=== PATIENT | female | born 1965 | race Hispanic/Latino ===

== ENCOUNTER 2016-09-21 15:42 | Emergency (ER) | payer MEDICAID ==
[2016-09-21 15:43] VITALS: BMI 18.3
[2016-09-21 15:57] VITALS: TEMP 98.4
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
[2016-09-21 17:55] VITALS: BP 122/77; PULSE 100; RESP 20
[2016-09-21 18:08] VITALS: O2SAT 98
== END 2016-09-21 18:04 | disposition home or self-care (01) ==
LOC: C.ER 15:42
DX: F41.9 Anxiety disorder, unspecified (principal)

== ENCOUNTER 2016-10-02 07:34 | Emergency (ER) | payer OTHER, MEDICAID ==
[2016-10-02 07:34] VITALS: BMI 18.3
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
[2016-10-02 09:06] LABS: BASO % 0.9 % (0.0-2.0); EOS # 0.1 K/uL (0.0-0.7); EOS % 2.4 % (0.0-4.0); LYMPH # 0.7 K/uL (1.0-4.3); LYMPH % 14.5 % (20.0-40.0); MEAN CORPUSCULAR HEMOGLOBIN 28.7 pg (27.0-31.0); MEAN CORPUSCULAR HGB CONC 32.3 g/dL (33.0-37.0); MONO # 0.6 K/uL (0.0-0.8); MONO % 12.9 % (0.0-10.0); RED CELL DISTRIBUTION WIDTH 16.9 % (11.5-14.5)
[2016-10-02 09:12] LABS: CHLORIDE 101 mmol/L (98-107); SODIUM 136 mmol/L (132-148)
[2016-10-02 09:13] LABS: POTASSIUM 3.9 mmol/L (3.6-5.2)
[2016-10-02 09:15] LABS: ALB/GLOB RATIO 1.3 (1.0-2.1); ALKALINE PHOSPHATASE 58 U/L (38-126); ALT/SGPT 25 U/L (9-52); AST/SGOT 41 U/L (14-36); BILIRUBIN,TOTAL 0.6 mg/dL (0.2-1.3); BLOOD UREA NITROGEN 12 mg/dL (7-17); CARBON DIOXIDE 25 mmol/L (22-30); GFR AFRICAN-AMERICAN > 60; GLUCOSE,RANDOM 89 mg/dL (65-105); TOTAL PROTEIN 6.9 g/dL (6.3-8.3)
[2016-10-02 09:16] LABS: ALCOHOL SERUM < 10 mg/dl (0-10); CALCIUM 8.8 mg/dl (8.6-10.4)
[2016-10-02 09:37] LABS: RBC URINE < 1 /hpf (0-3); URINE BILIRUBIN NEGATIVE (NEGATIVE); URINE BLOOD NEGATIVE (NEGATIVE); URINE COLOR Yellow (YELLOW); URINE GLUCOSE (UA) NORMAL (Normal); URINE KETONE NEGATIVE (NEGATIVE); URINE LEUKOCYTE ESTERASE NEG Leu/uL (Negative); URINE PROTEIN NEGATIVE (NEGATIVE); URINE UROBILINOGEN NORMAL mg/dL (0.2-1.0); WBC URINE 1 /hpf (0-5)
[2016-10-02 18:01] VITALS: BP 147/89; PULSE 99; RESP 16; TEMP 97.6
[2016-10-02 18:37] VITALS: O2SAT 99
== END 2016-10-02 18:24 | disposition home or self-care (01) ==
LOC: C.ER 07:34
DX: Z76.5 Malingerer [conscious simulation] (principal); F32.9 Major depressive disorder, single episode, unspecified; F31.9 Bipolar disorder, unspecified; T76.21XA Adult sexual abuse, suspected, initial encounter

== ENCOUNTER 2016-10-20 18:57 | Emergency (ER) | payer OTHER, MEDICAID ==
[2016-10-20 18:57] VITALS: BMI 18.3
[2016-10-20 19:09] VITALS: RESP 18
[2016-10-20 20:48] LABS: URINE BILIRUBIN NEGATIVE (NEGATIVE); URINE BLOOD NEGATIVE (NEGATIVE); URINE COLOR Colorless (YELLOW); URINE GLUCOSE (UA) NORMAL (Normal); URINE KETONE NEGATIVE (NEGATIVE); URINE LEUKOCYTE ESTERASE NEG Leu/uL (Negative); URINE PROTEIN NEGATIVE (NEGATIVE); URINE UROBILINOGEN NORMAL mg/dL (0.2-1.0); WBC URINE 2 /hpf (0-5)
[2016-10-20 20:49] LABS: BASO # 0.1 K/uL (0.0-0.2); BASO % 1.5 % (0.0-2.0); EOS # 0.1 K/uL (0.0-0.7); EOS % 1.9 % (0.0-4.0); LYMPH # 2.5 K/uL (1.0-4.3); LYMPH % 41.8 % (20.0-40.0); MEAN CELL VOLUME 87.9 fL (81.0-99.0); MEAN CORPUSCULAR HEMOGLOBIN 28.9 pg (27.0-31.0); MEAN CORPUSCULAR HGB CONC 32.9 g/dL (33.0-37.0); MONO # 0.7 K/uL (0.0-0.8); RED CELL DISTRIBUTION WIDTH 16.6 % (11.5-14.5)
[2016-10-20 20:53] LABS: CHLORIDE 95 mmol/L (98-107); SODIUM 131 mmol/L (132-148)
[2016-10-20 20:55] LABS: ALB/GLOB RATIO 1.3 (1.0-2.1); AST/SGOT 31 U/L (14-36); BILIRUBIN,TOTAL 0.5 mg/dL (0.2-1.3); CARBON DIOXIDE 24 mmol/L (22-30); GFR AFRICAN-AMERICAN > 60; TOTAL PROTEIN 7.2 g/dL (6.3-8.3)
[2016-10-20 20:56] LABS: ALCOHOL SERUM 159 mg/dl (0-10); ALKALINE PHOSPHATASE 56 U/L (38-126); ALT/SGPT 16 U/L (9-52); BLOOD UREA NITROGEN 7 mg/dL (7-17); CALCIUM 8.6 mg/dl (8.6-10.4); GLUCOSE,RANDOM 77 mg/dL (65-105)
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
[2016-10-20 23:01] VITALS: BP 133/78; PULSE 86; TEMP 98.3; O2SAT 97
== END 2016-10-20 23:00 | disposition home or self-care (01) ==
LOC: C.ER 18:57
DX: Z04.41 Encounter for examination and observation following alleged adult rape (principal); F31.9 Bipolar disorder, unspecified

== ENCOUNTER 2016-12-01 13:45 | Emergency (ER) | payer MEDICAID, OTHER ==
[2016-12-01 13:46] VITALS: BMI 18.3
[2016-12-01] MEDS ORDERED: Fluorescein 1 mg Ophthalmic Strip OS ONE (14:22)
[2016-12-01] MEDS ORDERED: Tetracaine 0.5% Ophth 2 ML BOTTLE OS ONE (14:22)
[2016-12-01] MEDS ORDERED: Tetracaine 0.5% Ophth (OR ONLY) ONE (14:24)
[2016-12-01] MEDS ORDERED: Fluorescein 1 mg Ophthalmic Strip ONE (14:24)
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
[2016-12-01 15:12] VITALS: RESP 18; TEMP 97.8
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
[2016-12-01 16:22] VITALS: BP 148/75; PULSE 75; O2SAT 98
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
== END 2016-12-01 16:23 | disposition home or self-care (01) ==
LOC: C.ER 13:45
DX: S05.02XA Injury of conjunctiva and corneal abrasion without foreign body, left eye, initial encounter (principal); Y04.2XXA Assault by strike against or bumped into by another person, initial encounter; Y93.89 Activity, other specified; Y92.89 Other specified places as the place of occurrence of the external cause

== ENCOUNTER 2017-01-07 21:05 | Emergency (ER) | payer SELFPAY ==
[2017-01-07 21:06] VITALS: BMI 18.3
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
[2017-01-07 22:23] LABS: RBC URINE < 1 /hpf (0-3); URINE BACTERIA RARE (<OCC); URINE BILIRUBIN NEGATIVE (NEGATIVE); URINE BLOOD NEGATIVE (NEGATIVE); URINE COLOR Straw (YELLOW); URINE GLUCOSE (UA) NORMAL (Normal); URINE KETONE NEGATIVE (NEGATIVE); URINE LEUKOCYTE ESTERASE NEG Leu/uL (Negative); URINE PROTEIN NEGATIVE (NEGATIVE); URINE UROBILINOGEN NORMAL mg/dL (0.2-1.0); WBC URINE 2 /hpf (0-5)
[2017-01-07 22:28] LABS: BASO # 0.1 K/uL (0.0-0.2); BASO % 0.9 % (0.0-2.0); EOS # 0.1 K/uL (0.0-0.7); EOS % 1.6 % (0.0-4.0); HEMATOCRIT 35.3 % (34.0-47.0); LYMPH % 45.1 % (20.0-40.0); MEAN CELL VOLUME 86.3 fL (81.0-99.0); MEAN CORPUSCULAR HEMOGLOBIN 28.5 pg (27.0-31.0); MEAN PLATELET VOLUME 8.3 fL (7.2-11.7); MONO # 0.7 K/uL (0.0-0.8); MONO % 9.7 % (0.0-10.0); NRBC % 0.1 % (0.0-2.0); WHITE BLOOD COUNT 6.7 K/uL (4.8-10.8)
[2017-01-07 22:38] LABS: CHLORIDE 97 mmol/L (98-107); SODIUM 138 mmol/L (132-148)
[2017-01-07 22:39] LABS: POTASSIUM 3.7 mmol/L (3.6-5.2)
[2017-01-07 22:41] LABS: ALB/GLOB RATIO 1.3 (1.0-2.1); ALKALINE PHOSPHATASE 73 U/L (38-126); AST/SGOT 32 U/L (14-36); BILIRUBIN,TOTAL 0.5 mg/dL (0.2-1.3); BLOOD UREA NITROGEN 8 mg/dL (7-17); CARBON DIOXIDE 22 mmol/L (22-30); GFR AFRICAN-AMERICAN > 60; TOTAL PROTEIN 6.7 g/dL (6.3-8.3)
[2017-01-07 22:42] LABS: ALT/SGPT 25 U/L (9-52); CALCIUM 8.1 mg/dl (8.6-10.4); GLUCOSE,RANDOM 97 mg/dL (65-105)
[2017-01-08 00:40] VITALS: BP 110/71; PULSE 75; RESP 18; TEMP 98.5
--- NOTE | 2017-01-08 09:18 | RAD ---
HISTORY: Chest pain COMPARISON: No prior. FINDINGS: LUNGS: No active pulmonary disease. PLEURA: No significant pleural effusion identified, no pneumothorax apparent. CARDIOVASCULAR: Normal. OSSEOUS STRUCTURES: No significant abnormalities. VISUALIZED UPPER ABDOMEN: Normal. OTHER FINDINGS: None. IMPRESSION: No active disease.
--- NOTE | 2017-01-08 13:43 | CARD ---
APPROVED REPORT EKG Measurement Heart [id number] <Conclusion> Normal sinus rhythm Normal ECG
[2017-01-13 00:28] VITALS: O2SAT 97
== END 2017-01-08 00:39 | disposition home or self-care (01) ==
LOC: C.ER 21:05
DX: R07.9 Chest pain, unspecified (principal)
CPT/HCPCS: 71010; 80053; 81001; 84484; 84703; 85025; 93005; 96374; 99284; J1885

== ENCOUNTER 2017-01-29 17:56 | Emergency (ER) | payer MEDICAID ==
[2017-01-29] MEDS ORDERED: Sodium Chloride 0.9% 1,000 ML IV ONE ×2 (20:13→20:14)
[2017-01-29] MEDS ORDERED: Iohexol 240 (50 ml) PO ONE (20:15)
--- NOTE | 2017-01-29 20:52 | C.PDOC ---
History Of Present Illness 51 year old female who presents to the ER with a complaint of diarrhea and severe abdominal pain for the past 5 days. Denies fever or dysuria. Chief Complaint (Nursing): GI Problem History Per: Patient History/Exam Limitations: no limitations Onset/Duration Of Symptoms: Days Current Symptoms Are (Timing): Still Present Severity: Severe Location Of Pain/Discomfort: LLQ Radiation Of Pain To:: None Quality Of Discomfort: Unable To Describe Associated Symptoms: Diarrhea. denies: Fever, Chills, Nausea, Vomiting, Back Pain Exacerbating Factors: None Alleviating Factors: None Recent travel outside of the [place]: No Abnormal Vaginal Bleeding: No Past Medical History Reviewed: Historical Data, Nursing Documentation, Vital Signs Vital Signs: Last Vital Signs Temp 98.5 F 01/29/17 18:43 Pulse 88 01/29/17 18:43 Resp 20 01/29/17 18:43 BP 123/88 01/29/17 18:43 Pulse Ox 98 01/29/17 20:55 - Medical History PMH: Anxiety, Bipolar Disorder, CAD, Cardia Arrhythmia, COPD, Depression, Fractures (right wrist due to fall), HTN, Migraine, Personality Disorder, Pneumonia, Seizures (ETOH related) Surgical History: Cholecystectomy - [facility] Procedures DETOXIFICATION SERVICES FOR SUBSTANCE ABUSE TREATMENT (06/17/16) GROUP SALT MINER FOR SUBSTANCE ABUSE TREATMENT, PSYCHOEDUCATION (04/22/16) GROUP PSYCHOTHERAPY (04/14/16) INDIV PSYCHOTHERAPY FOR SUBSTANCE ABUSE TREATMENT, SUPPORT (04/14/16) INDIV PSYCHOTHERAPY FOR SUBSTANCE ABUSE, PSYCHOEDUCATION (08/26/16) INDIVIDUAL PSYCHOTHERAPY, BEHAVIORAL (08/25/16) INDIVIDUAL PSYCHOTHERAPY, COGNITIVE-BEHAVIORAL (06/17/16) INDIVIDUAL PSYCHOTHERAPY, SUPPORTIVE (08/26/16) INTRODUCTION OF SERUM/TOX/VACCINE INTO MUSCLE, PERC APPROACH (08/19/16) MEDICATION MANAGEMENT (10/21/16) Family History: States: Unknown Family Hx - Social History Hx Tobacco Use: Yes Hx Alcohol Use: Yes Hx Substance Use: No - Immunization History Hx Tetanus Toxoid Vaccination: Yes Hx Influenza Vaccination: Yes Hx Pneumococcal Vaccination: Yes Review Of Systems Constitutional: Negative for: Fever, Chills Cardiovascular: Negative for: Chest Pain, Palpitations Gastrointestinal: Positive for: Abdominal Pain, Diarrhea. Negative for: Nausea , Vomiting Genitourinary: Negative for: Dysuria, Hematuria Physical Exam - Physical Exam Appears: Non-toxic, Other (Mild distress) Skin: Normal Color, Warm, Dry Head: Atraumatic, Normacephalic Oral Mucosa: Dry Chest: Symmetrical, No Tenderness Cardiovascular: Rhythm Regular, No Murmur Respiratory: Normal Breath Sounds, No Rales, No Rhonchi, No Wheezing Gastrointestinal/Abdominal: Bowel Sounds (Hyperactive), Tenderness (Midline, more LLQ), No Guarding, No Rebound Neurological/Psych: Oriented x3, Normal Speech, Normal Cognition ED Course And Treatment - Laboratory Results Result Diagrams: 01/29/17 21:00 01/29/17 21:00 O2 Sat by Pulse Oximetry: 98 (Room air) Pulse Ox Interpretation: Normal Progress Note: CT abd/pel, blood work, and urinalysis ordered. Bentyl, toradol, and IV fluids administered. Disposition Counseled Patient/Family Regarding: Diagnosis - Disposition Referrals: [facility] [Outside] Disposition: HOME/ ROUTINE Disposition Time: 00:11 Condition: STABLE Additional Instructions: hot sitz bath Prescriptions: Atropine/Hyoscyamine [] 1 tab PO Q6 #12 tab Dibucaine 1% [Nupercainal 1%] 1 oz EXT Q8 #1 tube Instructions: Gastroenteritis (ED), Dehydration (ED), Rectal Pain (ED) Forms: [facility] (Albanian) - POA Present On Arrival: None - Clinical Impression Clinical Impression: Gastroenteritis, Rectal or anal pain - Scribe Statement The provider has reviewed the documentation as recorded by the Scribnicolas Coffey All medical record entries made by the Scribe were at my direction and personally dictated by me. I have reviewed the chart and agree that the record accurately reflects my personal performance of the history, physical exam, medical decision making, and the department course for this patient. I have also personally directed, reviewed, and agree with the discharge instructions and disposition.
[2017-01-29 21:02] LABS: BASO # 0.1 K/uL (0.0-0.2); BASO % 1.8 % (0.0-2.0); EOS # 0.1 K/uL (0.0-0.7); EOS % 1.6 % (0.0-4.0); HEMATOCRIT 32.5 % (34.0-47.0); LYMPH # 3.4 K/uL (1.0-4.3); LYMPH % 51.9 % (20.0-40.0); MEAN CELL VOLUME 86.6 fL (81.0-99.0); MEAN CORPUSCULAR HGB CONC 32.3 g/dL (33.0-37.0); MEAN PLATELET VOLUME 8.5 fL (7.2-11.7); MONO # 0.4 K/uL (0.0-0.8); MONO % 6.7 % (0.0-10.0); NRBC % 0.1 % (0.0-2.0); RED CELL DISTRIBUTION WIDTH 17.6 % (11.5-14.5); WHITE BLOOD COUNT 6.5 K/uL (4.8-10.8)
[2017-01-29 21:05] LABS: TRANSITIONAL EPITHIAL < 1 /hpf (0-3); URINE BACTERIA RARE (<OCC); URINE BILIRUBIN NEGATIVE (NEGATIVE); URINE BLOOD NEGATIVE (NEGATIVE); URINE COLOR Straw (YELLOW); URINE GLUCOSE (UA) NORMAL (Normal); URINE KETONE NEGATIVE (NEGATIVE); URINE LEUKOCYTE ESTERASE NEG Leu/uL (Negative); URINE PROTEIN NEGATIVE (NEGATIVE); URINE UROBILINOGEN NORMAL mg/dL (0.2-1.0); WBC URINE < 1 /hpf (0-5)
[2017-01-29] MEDS ORDERED: Iohexol 240 (50 ml) ONE (21:10)
[2017-01-29 21:11] LABS: CHLORIDE 95 mmol/L (98-107); POTASSIUM 3.8 mmol/L (3.6-5.2); SODIUM 129 mmol/L (132-148)
[2017-01-29 21:13] LABS: GFR AFRICAN-AMERICAN > 60
[2017-01-29 21:14] LABS: ALB/GLOB RATIO 1.3 (1.0-2.1); ALKALINE PHOSPHATASE 63 U/L (38-126); ALT/SGPT 29 U/L (9-52); AST/SGOT 31 U/L (14-36); BILIRUBIN,TOTAL 0.4 mg/dL (0.2-1.3); BLOOD UREA NITROGEN 10 mg/dL (7-17); CALCIUM 8.4 mg/dl (8.6-10.4); CARBON DIOXIDE 22 mmol/L (22-30); GLUCOSE,RANDOM 85 mg/dL (65-105); TOTAL PROTEIN 6.3 g/dL (6.3-8.3)
[2017-01-29] MEDS ORDERED: Iodixanol 320 MG/ML 100 ML BOTTLE IV ONE (22:05)
--- NOTE | 2017-01-29 23:35 | CT ---
EXAM: CT Abdomen and Pelvis Without Intravenous Contrast. Oral contrast was utilized. CLINICAL HISTORY: 51 years old, female; Signs and symptoms; Vomiting and other: Diarrhea; Additional info: Abd pain/ diarrhea TECHNIQUE: Axial computed tomography images of the abdomen and pelvis without intravenous contrast. All CT scans at this facility use one or more dose reduction techniques, viz.: automated exposure control; ma/kV adjustment per patient size (including targeted exams where dose is matched to indication; i.e. head); or iterative reconstruction technique. Coronal and sagittal reformatted images were created and reviewed. COMPARISON: No relevant prior studies available. FINDINGS: Lower thorax: The bilateral lung bases are clear. ABDOMEN: Liver: The liver is enlarged and nodular in contour. Gallbladder and bile ducts: The gallbladder is decompressed, with multiple small calcified stones. No intra-extrahepatic biliary ductal dilation. Pancreas: Limited evaluation secondary to the lack of intravenous contrast. Spleen: No acute findings. Adrenals: No acute findings. Kidneys and ureters: No obstructing stones. No hydronephrosis. PELVIS: Bladder: The bladder is moderately distended. Reproductive: No acute findings. Appendix: The appendix is not definitively visualized, however no pericecal inflammatory changes identified to suggest the presence of acute appendicitis. ABDOMEN and PELVIS: Stomach and bowel: Small bowel wall thickening but no surrounding inflammation or fluid to confirm an acute enteritis. Peritoneum: As above. Lymph nodes: Limited evaluation without intravenous contrast. Vasculature: No aortic aneurysm. Calcified atherosclerotic disease. Bones: No acute fracture. IMPRESSION: Nodular enlarged liver, suggesting cirrhosis. Cholelithiasis, without CT evidence of cholecystitis. Mural thickening within multiple loops of small bowel, without surrounding inflammation or fluid to confirm an acute enteritis.
[2017-01-30 00:21] VITALS: BP 118/79; PULSE 74; RESP 16; TEMP 98; O2SAT 96
== END 2017-01-30 00:28 | disposition home or self-care (01) ==
LOC: C.ER 17:56
DX: K52.9 Noninfective gastroenteritis and colitis, unspecified (principal); K62.89 Other specified diseases of anus and rectum

== ENCOUNTER 2017-02-02 20:14 | Emergency (ER) | payer MEDICAID ==
[2017-02-02 20:25] VITALS: TEMP 98.1; O2SAT 99
[2017-02-02] MEDS ORDERED: Alum-Mag Hydrox-Simethicone Susp (30 mL) PO STA (21:33)
--- NOTE | 2017-02-02 21:33 | C.PDOC ---
History Of Present Illness 51 year old female who presents to the ER for acute ETOH intoxication. Patient is well known to the ER for many presentations for ETOH intoxication and bizarre behavior. Patient is complaining of loose stools, multiple vague complaints, and admits to ETOH use today; denies SI or HI. Time Seen by Provider: 02/02/17 21:28 Chief Complaint (Nursing): Abdominal Pain History Per: Patient History/Exam Limitations: no limitations Onset/Duration Of Symptoms: Hrs Current Symptoms Are (Timing): Still Present Radiation Of Pain To:: None Associated Symptoms: denies: Fever, Chills, Nausea, Vomiting Exacerbating Factors: None Alleviating Factors: None Recent travel outside of the [place]: No Abnormal Vaginal Bleeding: No Past Medical History Reviewed: Historical Data, Nursing Documentation, Vital Signs Vital Signs: Last Vital Signs Temp 98.1 F 02/02/17 20:22 Pulse 80 02/02/17 21:40 Resp 14 02/02/17 21:40 BP 130/80 02/02/17 21:40 Pulse Ox 99 02/02/17 21:40 - Medical History PMH: Anxiety, Bipolar Disorder, CAD, Cardia Arrhythmia, COPD, Depression, Fractures (right wrist due to fall), HTN, Migraine, Personality Disorder, Pneumonia, Seizures (ETOH related) Surgical History: Cholecystectomy - [facility] Procedures DETOXIFICATION SERVICES FOR SUBSTANCE ABUSE TREATMENT (06/17/16) GROUP PHLEBOTOMY COORDINATOR FOR SUBSTANCE ABUSE TREATMENT, PSYCHOEDUCATION (04/22/16) GROUP PSYCHOTHERAPY (04/14/16) INDIV PSYCHOTHERAPY FOR SUBSTANCE ABUSE TREATMENT, SUPPORT (04/14/16) INDIV PSYCHOTHERAPY FOR SUBSTANCE ABUSE, PSYCHOEDUCATION (08/26/16) INDIVIDUAL PSYCHOTHERAPY, BEHAVIORAL (08/25/16) INDIVIDUAL PSYCHOTHERAPY, COGNITIVE-BEHAVIORAL (06/17/16) INDIVIDUAL PSYCHOTHERAPY, SUPPORTIVE (08/26/16) INTRODUCTION OF SERUM/TOX/VACCINE INTO MUSCLE, PERC APPROACH (08/19/16) MEDICATION MANAGEMENT (10/21/16) Family History: States: Unknown Family Hx - Social History Hx Tobacco Use: Yes Hx Alcohol Use: Yes Hx Substance Use: No - Immunization History Hx Tetanus Toxoid Vaccination: Yes Hx Influenza Vaccination: Yes Hx Pneumococcal Vaccination: Yes Review Of Systems Constitutional: Negative for: Fever, Chills Gastrointestinal: Negative for: Nausea, Vomiting, Diarrhea Physical Exam - Physical Exam Appears: Non-toxic, No Acute Distress, Other (ETOH on breath, pressured speech) Skin: Normal Color, Warm, Dry Head: Atraumatic, Normacephalic Oral Mucosa: Moist Chest: Symmetrical, No Tenderness Cardiovascular: Rhythm Regular, No Murmur Respiratory: Normal Breath Sounds, No Rales, No Rhonchi, No Wheezing Gastrointestinal/Abdominal: Soft, No Tenderness Neurological/Psych: Oriented x3, Normal Speech, Normal Cognition Gait: Steady ED Course And Treatment O2 Sat by Pulse Oximetry: 99 (Room air) Pulse Ox Interpretation: Normal Progress Note: Maalox administered. Medical Decision Making Medical Decision Making: alcohol abuse, ? diarrhea many prior eval for alcohol abuse admits to alcohol abuse today Denies suicidal/hI Crisis evaluators agree ok for opt eval, s/p many prior evals. Disposition Doctor Will See Patient In The: Office Counseled Patient/Family Regarding: Studies Performed, Diagnosis - Disposition Referrals: Alcoholics Anonymous [Outside] [facility] [Outside] [facility] [Outside] [facility] [Outside] Disposition: HOME/ ROUTINE Disposition Time: 21:32 Condition: GOOD Additional Instructions: diarrhea: take maalox 30 cc (one tablestpoon) every 4 hours as needed bland diet for 2 days. bananas, white rice, applesauce, toast/bread Drink plenty of fluids Alcohol Abuse: Seek outpatient follow-up and Detox availability through our outpatient services No detox beds available today. Instructions: Abuse of Alcohol (ED), Acute Diarrhea (ED) Forms: [facility] (Pakistani) - Clinical Impression Clinical Impression: Chronic alcohol abuse - Scribe Statement The provider has reviewed the documentation as recorded by the Scribnicolas Coffey All medical record entries made by the Scribe were at my direction and personally dictated by me. I have reviewed the chart and agree that the record accurately reflects my personal performance of the history, physical exam, medical decision making, and the department course for this patient. I have also personally directed, reviewed, and agree with the discharge instructions and disposition.
[2017-02-02 21:41] VITALS: BP 130/80; PULSE 80; RESP 14
== END 2017-02-02 21:41 | disposition home or self-care (01) ==
LOC: C.ER 20:14
DX: F10.120 Alcohol abuse with intoxication, uncomplicated (principal); Y90.9 Presence of alcohol in blood, level not specified

== ENCOUNTER 2017-02-22 20:06 | Observation (INO) | payer MEDICAID ==
[2017-02-22 20:06] VITALS: BMI 20.9
[2017-02-22] MEDS ORDERED: Bacitracin 500 Units/gm Oint Foilpak UD TOP ONE (20:21)
[2017-02-22] MEDS ORDERED: Bacitracin 500 Units/gm Oint Foilpak UD ONE (20:43)
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
[2017-02-23 05:57] VITALS: BP 127/82; PULSE 78; RESP 22; TEMP 98.2; O2SAT 98
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
--- NOTE | 2017-02-23 09:43 | RAD ---
PROCEDURE: Cervical Spine Radiographs. HISTORY: Pain. COMPARISON: None. FINDINGS: BONES: There is normal alignment except for a minimal grade 1 spondylolisthesis C5-6 is C5 is posterior C6 by 2-3 mm. Multilevel spondylosis is identified mainly at C4-5 and C5-6 where prominent anterior osteophytes are identified but none posteriorly. No fracture identified. DISC SPACES: As above. SOFT TISSUES: Normal. No prevertebral soft tissue swelling. OTHER FINDINGS: None. IMPRESSION: No acute fracture appreciable. Limited spondylolisthesis C5-6. Mild multilevel cervical spondylosis. Extent of persist or worsen consider follow-up CT or MRI.
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
== END 2017-02-23 06:14 | disposition home or self-care (01) ==
LOC: C.ER 20:06 → C.9OBSV 21:54
PROVIDERS: ADMIT Emergency Medicine; ATTEND Emergency Medicine
DX: M54.2 Cervicalgia (principal); M25.561 Pain in right knee; Y09 Assault by unspecified means; J44.9 Chronic obstructive pulmonary disease, unspecified; I10 Essential (primary) hypertension; Z87.891 Personal history of nicotine dependence; I25.10 Atherosclerotic heart disease of native coronary artery without angina pectoris
CPT/HCPCS: 71020; 72040; 73562; 99284; G0378

== ENCOUNTER 2017-02-24 13:31 | Emergency (ER) | payer MEDICAID ==
[2017-02-24 13:31] VITALS: BMI 20.9
[2017-02-24 13:45] VITALS: BP 163/101; PULSE 83; RESP 20; TEMP 98.5; O2SAT 95
--- NOTE | 2017-02-24 14:33 | C.PDOC ---
History Of Present Illness 51 year old female, with a history of personality Bipolar Disorder and chronic alcoholism, was brought to the ED by EMS seeking retirement placement. Patient has presented to the ED three times this month, last visit was 02/22/2017. She admits to drinking alcohol this morning and denies suicidal or homicidal ideations. Time Seen by Provider: 02/24/17 14:11 Chief Complaint (Nursing): Psychiatric Evaluation History Per: Patient, EMS History/Exam Limitations: no limitations Onset/Duration Of Symptoms: Hrs Suicide/Self Injury Attempted (Context): None Modifying Factor(s): Alcohol Severity: None Pain Scale Rating Of: 0 Associated Symptoms: denies: Suicidal Thoughts, Suicidal Plan Involuntary Hold By: None Recent travel outside of the [place]: No Past Medical History Reviewed: Historical Data, Nursing Documentation, Vital Signs Vital Signs: Last Vital Signs Temp 98.5 F 02/24/17 13:38 Pulse 83 02/24/17 13:38 Resp 20 02/24/17 13:38 BP 163/101 H 02/24/17 13:38 Pulse Ox 95 02/24/17 21:32 - Medical History PMH: Anxiety, Bipolar Disorder, CAD, Cardia Arrhythmia, COPD, Depression, Fractures (right wrist due to fall), HTN, Migraine, Personality Disorder, Pneumonia, Seizures (ETOH related) Surgical History: Cholecystectomy - [facility] Procedures DETOXIFICATION SERVICES FOR SUBSTANCE ABUSE TREATMENT (06/17/16) GROUP PARTS PULLER FOR SUBSTANCE ABUSE TREATMENT, PSYCHOEDUCATION (04/22/16) GROUP PSYCHOTHERAPY (04/14/16) INDIV PSYCHOTHERAPY FOR SUBSTANCE ABUSE TREATMENT, SUPPORT (04/14/16) INDIV PSYCHOTHERAPY FOR SUBSTANCE ABUSE, PSYCHOEDUCATION (08/26/16) INDIVIDUAL PSYCHOTHERAPY, BEHAVIORAL (08/25/16) INDIVIDUAL PSYCHOTHERAPY, COGNITIVE-BEHAVIORAL (06/17/16) INDIVIDUAL PSYCHOTHERAPY, SUPPORTIVE (08/26/16) INTRODUCTION OF SERUM/TOX/VACCINE INTO MUSCLE, PERC APPROACH (08/19/16) MEDICATION MANAGEMENT (10/21/16) Family History: States: Unknown Family Hx - Social History Hx Tobacco Use: Yes Hx Alcohol Use: Yes Hx Substance Use: No - Immunization History Hx Tetanus Toxoid Vaccination: No Hx Influenza Vaccination: Yes Hx Pneumococcal Vaccination: Yes Review Of Systems Constitutional: Negative for: Fever, Chills Cardiovascular: Negative for: Chest Pain, Palpitations Respiratory: Negative for: Cough, Shortness of Breath Gastrointestinal: Negative for: Nausea, Vomiting, Abdominal Pain, Diarrhea Physical Exam - Physical Exam Appears: Non-toxic, No Acute Distress Skin: Warm, Dry Head: Atraumatic, Normacephalic Eye(s): bilateral: Normal Inspection Oral Mucosa: Moist Neck: Supple Chest: Symmetrical, No Deformity Cardiovascular: Rhythm Regular, No Murmur Respiratory: Normal Breath Sounds, No Rales, No Rhonchi, No Wheezing Gastrointestinal/Abdominal: Soft, No Tenderness, No Distention, No Guarding, No Rebound Extremity: Normal ROM, No Tenderness Neurological/Psych: Oriented x3, Normal Speech, Normal Cognition, Normal Motor, Normal Sensation ED Course And Treatment ECG: Interpreted By Me, Viewed By Me ECG Rhythm: Sinus Rhythm Rate From EC O2 Sat by Pulse Oximetry: 95 (room air ) Progress Note: EKG was ordered. Medical Decision Making Medical Decision Making: seen by Crisis Evaluators, no SI/HI no h/o self harm extensive psych and etoh abuse hx, and malingering 4th ED visit this week with normal w/u. consider malingering. asking for retirement placement, educated and arranged for this pt for tonight no w/u indicated. Disposition Doctor Will See Patient In The: Office Counseled Patient/Family Regarding: Studies Performed, Diagnosis - Disposition [facility]errals[facility] [Outside] Disposition: HOME/ ROUTINE Disposition Time: 14:32 Condition: GOOD Additional Instructions: seek [facility] placement as arranged for tonight and ongoing Seek outpatient psych services as needed. STOP alcohol abuse Forms: Gen Discharge Inst Macedonian, [facility] (Telugu) - Clinical Impression Clinical Impression: Homeless - Scribe Statement The provider has reviewed the documentation as recorded by the Scribe Georgina Salvador All medical record entries made by the Scribe were at my direction and personally dictated by me. I have reviewed the chart and agree that the record accurately reflects my personal performance of the history, physical exam, medical decision making, and the department course for this patient. I have also personally directed, reviewed, and agree with the discharge instructions and disposition.
--- NOTE | 2017-02-27 22:41 | CARD ---
APPROVED REPORT EKG Measurement Heart [id number] <Conclusion> Normal sinus rhythm Normal ECG
== END 2017-02-24 15:02 | disposition home or self-care (01) ==
LOC: C.ER 13:31
DX: Z59.0 Homelessness (principal); F31.9 Bipolar disorder, unspecified

== ENCOUNTER 2017-03-09 11:49 | Emergency (ER) | payer MEDICAID ==
[2017-03-09 11:49] VITALS: BMI 20.9
[2017-03-09 12:05] VITALS: BP 124/73; PULSE 80; RESP 16; TEMP 97.3; O2SAT 98
--- NOTE | 2017-03-09 12:41 | C.PDOC ---
History Of Present Illness 51 yo female, w/PMH of Right heel spur, intermittent Rt foot pain, come in for evaluation of Right foot pain over heel area with swelling gradually worsen for past few days. Pt reports, pain is localized and sever with ambulation. Otherwise, pt denies known trauma or injury, fever, chills, skin changes to Right foot, denies weakness, sensory or vascular deficits to Right foot. Ambulate to ED for evaluation, appears drowsy and intoxicated. Time Seen by Provider: 03/09/17 12:06 Chief Complaint (Nursing): Lower Extremity Problem/Injury Past Medical History Vital Signs: Last Vital Signs Temp 97.3 F L 03/09/17 11:56 Pulse 80 03/09/17 11:56 Resp 16 03/09/17 11:56 BP 124/73 03/09/17 11:56 Pulse Ox 98 03/09/17 11:56 - Medical History PMH: Anxiety, Bipolar Disorder, CAD, Cardia Arrhythmia, COPD, Depression, Fractures (right wrist due to fall), HTN, Migraine, Personality Disorder, Pneumonia, Seizures (ETOH related) Denies: Diabetes, Hepatitis, HIV, Chronic Kidney Disease, Schizophrenia, Sexually Transmitted Disease Surgical History: Cholecystectomy - [facility] Procedures DETOXIFICATION SERVICES FOR SUBSTANCE ABUSE TREATMENT (06/17/16) GROUP RECONCILIATION MACHINE OPERATOR FOR SUBSTANCE ABUSE TREATMENT, PSYCHOEDUCATION (04/22/16) GROUP PSYCHOTHERAPY (04/14/16) INDIV PSYCHOTHERAPY FOR SUBSTANCE ABUSE TREATMENT, SUPPORT (04/14/16) INDIV PSYCHOTHERAPY FOR SUBSTANCE ABUSE, PSYCHOEDUCATION (08/26/16) INDIVIDUAL PSYCHOTHERAPY, BEHAVIORAL (08/25/16) INDIVIDUAL PSYCHOTHERAPY, COGNITIVE-BEHAVIORAL (06/17/16) INDIVIDUAL PSYCHOTHERAPY, SUPPORTIVE (08/26/16) INTRODUCTION OF SERUM/TOX/VACCINE INTO MUSCLE, PERC APPROACH (08/19/16) MEDICATION MANAGEMENT (10/21/16) Family History: States: Unknown Family Hx - Social History Hx Tobacco Use: Yes Hx Alcohol Use: Yes Hx Substance Use: No - Immunization History Hx Tetanus Toxoid Vaccination: No Hx Influenza Vaccination: Yes Hx Pneumococcal Vaccination: Yes Physical Exam - Physical Exam Appears: Well, Non-toxic, No Acute Distress Skin: Normal Color, Warm, No Rash, No Ecchymosis Extremity: Normal ROM (Right foot), Tenderness (Right foot tenderness over plantar arch extend to calcaneus with diffuse edema under calcaneus bone, No erythema, no proximal streaking, no palpable deformity.), No Calf Tenderness, Capillary Refill (less than 2sec to Right foot), No Deformity Neurological/Psych: Oriented x3, Normal Speech, Normal Motor, Normal Sensation, Normal Reflexes ED Course And Treatment O2 Sat by Pulse Oximetry: 98 - Other Rad rIGHT FOOT X-Ray: Interpreted by Me, Viewed By Me Interpretation: no acute fx of dislocation. (+)tiny heel spur Progress Note: On re-eavl, pt is afebrile, hemodynamicaly stable. Non-toxic. Right foot: exam c/w plantar edema, tenderness r/o plantar fasciitis vx heel spur. No defomrity, no cellulitis. FAROM, no neurovascular deficits. xray review and c/w tiny heel spur. Case discussed with Podiary [id number] and NSAIDs, cast shoe with outpt f/u recommend. Pt advised. ref. to f/u with Web Systems Developer in 2-3 days for re-eavl. return if any new changes. Disposition Counseled Patient/Family Regarding: Studies Performed, Diagnosis, Need For Followup, Rx Given - Disposition Referrals: [facility] [Outside] [facility] [Outside] Disposition: HOME/ ROUTINE Disposition Time: 12:43 Condition: STABLE Additional Instructions: TAKE MEDICATION PRESCRIBED FOLLOW UP WITH PODIATRY CLINIC ON SUNDAY FROM 8-NOON AT MEDICAL CLINIC FACILITY FOR RE-EVALUATION. RETURN TO ED IF ANY NEW CHANGES. Prescriptions: Ibuprofen [Motrin Tab] 600 mg PO Q6 #14 tab Instructions: Plantar Fasciitis (ED) - Clinical Impression Clinical Impression: Plantar fasciitis
--- NOTE | 2017-03-09 14:36 | RAD ---
PROCEDURE: Right foot 03/09/2017 HISTORY: pain COMPARISON: None. FINDINGS: BONES: No evidence of acute displaced fracture nor dislocation. Small the plantar calcaneal enthesophyte. . Note that JOINTS: Minimal degenerative changes 1st MTP joint. Slight hammertoe deformities on preclude adequate evaluation of the DIP joints SOFT TISSUES: Normal. OTHER FINDINGS: None. IMPRESSION: No acute fractures. Small plantar surface calcaneal enthesophyte. Minimal DJD 1st MTP joint. Mild hammertoe deformities preclude evaluation of the DIP joints.
== END 2017-03-09 13:03 | disposition home or self-care (01) ==
LOC: C.ER 11:49
DX: M72.2 Plantar fascial fibromatosis (principal)

== ENCOUNTER 2017-05-08 12:00 | Inpatient (IN) | payer MEDICAID ==
[2017-05-08 12:00] VITALS: BMI 20.9
[2017-05-08] MEDS ORDERED: Sodium Chloride 0.9% 1,000 ML IV ONE (13:04)
[2017-05-08] MEDS ORDERED: Sodium Chloride 0.9% 1,000 ML ONE (13:23)
--- NOTE | 2017-05-08 13:23 | RAD ---
HISTORY: abd pain COMPARISON: Chest radiograph dated 02/22/2017 TECHNIQUE: Chest PA and lateral FINDINGS: LUNGS: No active pulmonary disease. PLEURA: No significant pleural effusion identified. No pneumothorax apparent. CARDIOVASCULAR: Normal. OSSEOUS STRUCTURES: No significant abnormalities. VISUALIZED UPPER ABDOMEN: Normal. OTHER FINDINGS: None. IMPRESSION: No active disease.
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
[2017-05-08 13:48] LABS: BASO # 0.1 K/uL (0.0-0.2); BASO % 1.4 % (0.0-2.0); EOS # 0.2 K/uL (0.0-0.7); HEMATOCRIT 28.9 % (34.0-47.0); LYMPH # 1.6 K/uL (1.0-4.3); LYMPH % 26.8 % (20.0-40.0); MEAN CELL VOLUME 87.7 fL (81.0-99.0); MEAN CORPUSCULAR HEMOGLOBIN 28.5 pg (27.0-31.0); MEAN CORPUSCULAR HGB CONC 32.5 g/dL (33.0-37.0); MEAN PLATELET VOLUME 8.3 fL (7.2-11.7); MONO # 0.7 K/uL (0.0-0.8); MONO % 12.2 % (0.0-10.0); RED CELL DISTRIBUTION WIDTH 17.8 % (11.5-14.5)
[2017-05-08 14:14] LABS: ALKALINE PHOSPHATASE 73 U/L (38-126); ALT/SGPT 36 U/L (9-52); AST/SGOT 40 U/L (14-36); BILIRUBIN,TOTAL 0.2 mg/dL (0.2-1.3); BLOOD UREA NITROGEN 15 mg/dL (7-17); CARBON DIOXIDE 21 mmol/L (22-30); CHLORIDE 100 mmol/L (98-107); GFR AFRICAN-AMERICAN > 60; GLUCOSE,RANDOM 72 mg/dL (65-105); POTASSIUM 3.8 mmol/L (3.6-5.2); SODIUM 131 mmol/L (132-148); TOTAL PROTEIN 7.1 g/dL (6.3-8.3)
[2017-05-08 19:12] VITALS: O2SAT 99
--- NOTE | 2017-05-08 21:20 | PCM.BM ---
<Leonardo Francisco - Last Filed: 05/08/17 21:18> Treatment Plan Problems - Problems identified on initial assessmt Depression Date Initiated: 05/08/17 Time Initiated: 19:30 Assessment reference: NA Status: Active Treatment assets and liabiliti Patient Assests: adapts well, cooperative, resourceful, self-reliant, ADL independent, negotiates basic needs, cognitively intact Patient Liabilities: substance abuse (Alcohol), medical problems (HTN, High cholesterol) - Milieu Protocol Maintain good personal hygiene: daily Encourage regular showers, daily Remind patient to perform daily oral care Conduct patient checks and document Observation sheet: Q15 minutes Maintain personal safety: every shift Educate patient to report safety concerns to staff, every shift Monitor environment for contraband/sharps Medication safety: Monitor for expected outcome, potential side effects: every shift, Assess barriers to learning: every shift, Assess readiness for medication education: every shift <Shanita Chu - Last Filed: 05/09/17 11:33> Family Contact Family involvement: Famliy/SO not involved - Goals for Treatment Patient goals for treatment: "I need an outpatient program." Discharge/Continuing Care - Education Needs Education Needs: Patient Medication, Patient Coping Skills, Patient Placement options, Patient Community resources - Discharge Discharge Criteria: Tolerates medication w/o severe side effects, Reduction of target symptoms Discharge to:: Home - Treatment Team Participation Discussed with Family/SO: No Was Patient/Family/SO present at Treatment Team Meeting: Yes <Lo Chiang - Last Filed: 05/10/17 22:51> - Diagnosis (1) Alcohol use disorder Status: Acute Interventions: * Assess 7x/week regarding severity of withdrawal * Educate regarding risks, benefits, side effects and alternatives of medications * Use Motivational Interviewing for abstinence * Use CBT for relapse prevention * Medication management for withdrawal symptoms * Encourage medication assisted treatment * (2) Bipolar 1 disorder Status: Acute Interventions: 05/10/17 22:50 * Assess/adjust medications daily and /or as needed * See patient on an individual basis 7x/week to assess level of manic behaviors and stability * Discuss risks, benefits, side effects and alternatives of medications *
[2017-05-08 22:20] LABS: RBC URINE 1 /hpf (0-3); TRANSITIONAL EPITHIAL < 1 /hpf (0-3); URINE BACTERIA RARE (<OCC); URINE BILIRUBIN NEGATIVE (NEGATIVE); URINE BLOOD NEGATIVE (NEGATIVE); URINE COLOR Yellow (YELLOW); URINE GLUCOSE (UA) NORMAL (Normal); URINE KETONE TRACE mg/dL (NEGATIVE); URINE PROTEIN NEGATIVE (NEGATIVE); URINE UROBILINOGEN NORMAL mg/dL (0.2-1.0); WBC URINE 9 /hpf (0-5)
[2017-05-08 22:21] LABS: URINE LEUKOCYTE ESTERASE 1+ Leu/uL (Negative)
[2017-05-09 06:59] VITALS: RESP 20
[2017-05-09] MEDS ORDERED: Divalproex 500 mg ER Tab PO SCH (10:00)
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
[2017-05-09] MEDS: Divalproex 500 mg ER Tab PO SCH (18:10)
[2017-05-09] MEDS ORDERED: Vitamins A & D Oint UD Foilpak TOP PRN (20:39)
[2017-05-10] MEDS: Divalproex 500 mg ER Tab PO SCH ×2 (10:23→17:40)
--- NOTE | 2017-05-10 22:50 | PCM.PYCHPN ---
Psychiatric Progress Note - Psychiatric Progress Note Patient seen today, length of contact: 16 min Patient Chief Complaint: "I feel much better" Problems Identified/Issues Discussed: The pt is seen, chart reviewed, case discussed with staff. Support given, CBT and VT used briefly No new symptoms reported, improving slowly and needs more time No SEs from medications, risks discussed. After care discussed Medication Change: Yes Medical Record Reviewed: Yes Mental Status Examination - Cognitive Function Orientation: Person, Place, Situation, Time Memory: Intact Attention: WNL Concentration: WNL Association: WNL Fund of Knowledge: WNL - Mood Mood: Anxious - Affect Affect: Constricted - Speech Speech: Appropriate - Formal Thought Process Formal Thought Process: No Impairment - Suicidal Ideation Suicidal Ideation: No - Homicidal Ideation Homicidal Ideation: No Goal/Treatment Plan - Goal/Treatment Plan Need for Continued Stay: Discharge may exacerbated symptoms, Severe functional impairment Progress Toward Problem(s) and Goals/Treatment Plan: Resume depakote and gabapentin Continue with MASSH Attend groups and activities Individual therapy Psychoeducation and support Encourage compliance with meds and after care Refer to outpatient program Teach healthy lifestyle methods, i.e. diet, exercise, meditation Smoking cessation
[2017-05-10] MEDS ORDERED: guaiFENesin 100 mg/5 ml Syrup UD PO PRN (23:21)
[2017-05-11 06:50] VITALS: BP 129/78; PULSE 66; TEMP 97.7
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
[2017-05-11] MEDS: Divalproex 500 mg ER Tab PO SCH (09:36)
--- NOTE | 2017-05-11 19:28 | CARD ---
APPROVED REPORT EKG Measurement Heart [id number] NM [id number] <Conclusion> Normal sinus rhythm Normal ECG
== END 2017-05-11 10:28 | disposition home or self-care (01) | DRG 428 ==
LOC: C.ER 12:00 → C.9E 18:36 → C.5E 18:54
PROC: GZHZZZZ Group Psychotherapy (ICD-10-PCS; principal; 2017-05-08)
PROC: GZ56ZZZ Individual Psychotherapy, Supportive (ICD-10-PCS; 2017-05-08)
DX: F60.3 Borderline personality disorder (principal); R45.851 Suicidal ideations; F14.11 Cocaine abuse, in remission; J44.9 Chronic obstructive pulmonary disease, unspecified; F10.20 Alcohol dependence, uncomplicated; Z72.89 Other problems related to lifestyle; I10 Essential (primary) hypertension; I25.10 Atherosclerotic heart disease of native coronary artery without angina pectoris; F17.210 Nicotine dependence, cigarettes, uncomplicated

== ENCOUNTER 2017-05-17 14:56 | Emergency (ER) | payer MEDICAID ==
[2017-05-17 14:57] VITALS: BMI 20.9
[2017-05-17 15:00] VITALS: RESP 20
[2017-05-17] MEDS ORDERED: Albuterol-Ipratrop 3 mg / 0.5 (3 ml) UD INH STA (15:31)
--- NOTE | 2017-05-17 15:38 | C.PDOC ---
History Of Present Illness Patient is a 51 y/o female, smoker, presents c/o productive cough with green sputum for the past week. Patient denies fever, ear pain, throat pain, CP, SOB. Time Seen by Provider: 05/17/17 15:18 Chief Complaint (Nursing): Cough, Cold, Congestion History Per: Patient History/Exam Limitations: no limitations Onset/Duration Of Symptoms: Days Current Symptoms Are (Timing): Still Present Sick Contacts (Context): None Associated Symptoms: Cough, Sputum (green). denies: Fever, Chills, Nasal Congestion, Vomiting, Diarrhea Ear Symptoms: Bilateral: None Severity: None Recent travel outside of the [place]: No Additional History Per: Patient Past Medical History Reviewed: Historical Data, Nursing Documentation, Vital Signs Vital Signs: Last Vital Signs Temp 97.7 F 05/17/17 16:34 Pulse 82 05/17/17 17:02 Resp 20 05/17/17 16:34 BP 124/80 05/17/17 16:34 Pulse Ox 99 05/17/17 21:50 - Medical History PMH: Anxiety, Bipolar Disorder, CAD, Cardia Arrhythmia, COPD, Depression, Fractures (right wrist due to fall), HTN, Migraine, Personality Disorder, Pneumonia, Seizures (ETOH related) Denies: HIV, Chronic Kidney Disease, Sexually Transmitted Disease Surgical History: Cholecystectomy - [facility] Procedures DETOXIFICATION SERVICES FOR SUBSTANCE ABUSE TREATMENT (06/17/16) GROUP SPEECH PATHOLOGIST FOR SUBSTANCE ABUSE TREATMENT, PSYCHOEDUCATION (04/22/16) GROUP PSYCHOTHERAPY (05/08/17) INDIV PSYCHOTHERAPY FOR SUBSTANCE ABUSE TREATMENT, SUPPORT (04/14/16) INDIV PSYCHOTHERAPY FOR SUBSTANCE ABUSE, PSYCHOEDUCATION (08/26/16) INDIVIDUAL PSYCHOTHERAPY, BEHAVIORAL (08/25/16) INDIVIDUAL PSYCHOTHERAPY, COGNITIVE-BEHAVIORAL (06/17/16) INDIVIDUAL PSYCHOTHERAPY, SUPPORTIVE (05/08/17) INTRODUCTION OF SERUM/TOX/VACCINE INTO MUSCLE, PERC APPROACH (08/19/16) MEDICATION MANAGEMENT (10/21/16) Family History: States: Unknown Family Hx - Social History Hx Tobacco Use: Yes Hx Alcohol Use: Yes Hx Substance Use: Yes - Immunization History Hx Tetanus Toxoid Vaccination: No Hx Influenza Vaccination: Yes Hx Pneumococcal Vaccination: Yes Review Of Systems Except As Marked, All Systems Reviewed And Found Negative. Constitutional: Negative for: Fever, Chills ENT: Negative for: Ear Pain, Throat Pain Cardiovascular: Negative for: Chest Pain, Palpitations Respiratory: Positive for: Cough, Sputum (Green). Negative for: Shortness of Breath Gastrointestinal: Negative for: Nausea, Vomiting, Abdominal Pain Skin: Negative for: Rash Neurological: Negative for: Weakness, Numbness Physical Exam - Physical Exam Appears: Non-toxic, No Acute Distress Skin: Normal Color, Warm, Dry Head: Atraumatic, Normacephalic Nose: No Discharge Oral Mucosa: Moist Throat: Normal, No Erythema, No Exudate Neck: Normal ROM, Supple Chest: Symmetrical Cardiovascular: Rhythm Regular, No Murmur Respiratory: No Rales, No Rhonchi, Wheezing (scatter at the bases ), Other ( Coarse breath sounds) Gastrointestinal/Abdominal: Soft, No Tenderness, No Guarding, No Rebound Extremity: Normal ROM, No Pedal Edema, No Calf Tenderness, No Swelling Neurological/Psych: Oriented x3, Normal Speech, Normal Cognition Gait: Steady ED Course And Treatment O2 Sat by Pulse Oximetry: 99 (On RA) Pulse Ox Interpretation: Normal Progress Note: Plan: -CXR, Albuterol 3 ml INH, Tessalon Pearles 100 mg PO Medical Decision Making Medical Decision Making: Afebrile, presenting with productive cough. Cxray negative for acute disease. Symptoms improving after duonebs. Normal O2 sat. Vitals WNL. Due to length of symptoms and tobacco use, will dc with tessalon perles and zpack. Patient was given detailed return instructions. Disposition - Disposition Disposition: HOME/ ROUTINE Disposition Time: 16:03 Condition: GOOD Additional Instructions: Follow-up with PMD within 2 days. Stop smoking. Take full course of zpack. Use tessalon perles as needed for cough Prescriptions: Azithromycin 250 mg PO DAILY #6 tablet Benzonatate [Tessalon Perles] 100 mg PO TID PRN #20 sgl PRN Reason: Cough Instructions: Upper Respiratory Infection (ED) Forms: [facility] (Uzbek), Work Excuse - Clinical Impression Clinical Impression: Bronchitis, Upper respiratory infection - Scribe Statement The provider has reviewed the documentation as recorded by the Scribe Rajinder Da Silva All medical record entries made by the Scribe were at my direction and personally dictated by me. I have reviewed the chart and agree that the record accurately reflects my personal performance of the history, physical exam, medical decision making, and the department course for this patient. I have also personally directed, reviewed, and agree with the discharge instructions and disposition.
[2017-05-17] MEDS ORDERED: Albuterol-Ipratrop 3 mg / 0.5 (3 ml) UD ONE (16:14)
--- NOTE | 2017-05-17 16:27 | RAD ---
HISTORY: productive cough COMPARISON: Chest x-ray performed 05/08/17 TECHNIQUE: Chest PA and lateral FINDINGS: LUNGS: No focal consolidation. Please note that chest x-ray has limited sensitivity for the detection of pulmonary masses. PLEURA: No significant pleural effusion identified. No definite pneumothorax . CARDIOVASCULAR: Heart size appears within normal limits. Ectatic aorta. OSSEOUS STRUCTURES: Degenerative changes of the spine. VISUALIZED UPPER ABDOMEN: Unremarkable. OTHER FINDINGS: None. IMPRESSION: No acute findings identified.
[2017-05-17 16:35] VITALS: BP 124/80; TEMP 97.7
[2017-05-17 17:04] VITALS: PULSE 82
[2017-05-17 21:50] VITALS: O2SAT 99
== END 2017-05-17 16:41 | disposition home or self-care (01) ==
LOC: C.ER 14:56
DX: J40 Bronchitis, not specified as acute or chronic (principal); J06.9 Acute upper respiratory infection, unspecified; Z72.0 Tobacco use

== ENCOUNTER 2017-05-25 09:31 | Emergency (ER) | payer MEDICAID ==
[2017-05-25 09:31] VITALS: BMI 20.9
[2017-05-25 09:46] VITALS: BP 163/96; PULSE 84; RESP 18; TEMP 98.2; O2SAT 100
--- NOTE | 2017-05-25 09:49 | C.PDOC ---
History Of Present Illness Well-known psychiatric and alcoholic patient presents to the ER after leaving [facility] appointment, complaining of anxiety. Patient states she has been sober for weeks now. She reports good compliance with medications. She feels anxious about losing one of her credit cards and felt too anxious to stay for her interview at [facility] today, and came here instead. Time Seen by Provider: 05/25/17 09:48 Chief Complaint (Nursing): Psychiatric Evaluation History Per: Patient History/Exam Limitations: no limitations Onset/Duration Of Symptoms: Days (x 1) Current Symptoms Are (Timing): Still Present Associated Symptoms: Anxiety Past Medical History Reviewed: Historical Data, Nursing Documentation, Vital Signs Vital Signs: Last Vital Signs Temp 98.2 F 05/25/17 09:43 Pulse 84 05/25/17 09:43 Resp 18 05/25/17 09:43 BP 163/96 H 05/25/17 09:43 Pulse Ox 100 05/25/17 09:49 - Medical History PMH: Anxiety, Bipolar Disorder, CAD, Cardia Arrhythmia, COPD, Depression, Fractures (right wrist due to fall), HTN, Migraine, Personality Disorder, Pneumonia, Seizures (ETOH related) Denies: HIV, Chronic Kidney Disease, Sexually Transmitted Disease Surgical History: Cholecystectomy - [facility] Procedures DETOXIFICATION SERVICES FOR SUBSTANCE ABUSE TREATMENT (06/17/16) GROUP ELECTRIC LINEMAN FOR SUBSTANCE ABUSE TREATMENT, PSYCHOEDUCATION (04/22/16) GROUP PSYCHOTHERAPY (05/08/17) INDIV PSYCHOTHERAPY FOR SUBSTANCE ABUSE TREATMENT, SUPPORT (04/14/16) INDIV PSYCHOTHERAPY FOR SUBSTANCE ABUSE, PSYCHOEDUCATION (08/26/16) INDIVIDUAL PSYCHOTHERAPY, BEHAVIORAL (08/25/16) INDIVIDUAL PSYCHOTHERAPY, COGNITIVE-BEHAVIORAL (06/17/16) INDIVIDUAL PSYCHOTHERAPY, SUPPORTIVE (05/08/17) INTRODUCTION OF SERUM/TOX/VACCINE INTO MUSCLE, PERC APPROACH (08/19/16) MEDICATION MANAGEMENT (10/21/16) Family History: States: Unknown Family Hx - Social History Hx Tobacco Use: Yes Hx Alcohol Use: Yes Hx Substance Use: Yes - Immunization History Hx Tetanus Toxoid Vaccination: Yes Hx Influenza Vaccination: Yes Hx Pneumococcal Vaccination: Yes Review Of Systems Except As Marked, All Systems Reviewed And Found Negative. Psych: Positive for: Anxiety. Negative for: Suicidal ideation (or homicidal) Physical Exam - Physical Exam Appears: Non-toxic, No Acute Distress, Other (Questionable alcohol on breath) Skin: Normal Color, Warm, Dry Head: Atraumatic, Normacephalic Eye(s): bilateral: Normal Inspection, PERRL, EOMI Oral Mucosa: Moist Neck: Normal ROM, Supple Cardiovascular: Rhythm Regular Respiratory: Normal Breath Sounds, No Accessory Muscle Use Extremity: Normal ROM, No Pedal Edema, No Deformity Neurological/Psych: Oriented x3, Normal Speech, Other (Calm and cooperative) Gait: Steady ED Course And Treatment O2 Sat by Pulse Oximetry: 100 (RA) Pulse Ox Interpretation: Normal Medical Decision Making Medical Decision Making: Impression: anxiety- came from [facility] today. no acute issues Seeking admission but seen by Crisis and no SI/HI- declined ? med compliance sober now for "a while" Return to [facility] today calm and cooperative @ d/c Disposition Doctor Will See Patient In The: Office Counseled Patient/Family Regarding: Studies Performed, Diagnosis - Disposition Referrals: [facility] [Outside] [facility] [Outside] [facility] [Outside] Disposition: HOME/ ROUTINE Disposition Time: 09:49 Condition: GOOD Additional Instructions: return to the [facility]- psychiatric doctor's office you came from today- to continue your evaluations Take your medications as prescribed You're doing great- continue to remain sober! Instructions: Anxiety (ED) Forms: [facility] (Nicaraguan) - Clinical Impression Clinical Impression: Anxiety - Scribe Statement The provider has reviewed the documentation as recorded by the Scribe (Sophia Ibarra) Scribe Attestation: All medical record entries made by the Scribe were at my direction and personally dictated by me. I have reviewed the chart and agree that the record accurately reflects my personal performance of the history, physical exam, medical decision making, and the department course for this patient. I have also personally directed, reviewed, and agree with the discharge instructions and disposition.
== END 2017-05-25 10:10 | disposition home or self-care (01) ==
LOC: C.ER 09:31
DX: F41.9 Anxiety disorder, unspecified (principal)

== ENCOUNTER 2017-09-29 13:08 | Emergency (ER) | payer MEDICAID ==
[2017-09-29 13:10] VITALS: BMI 20.9
[2017-09-29 13:30] VITALS: RESP 20; O2SAT 100
[2017-09-29 14:23] LABS: BASO # 0.1 K/uL (0.0-0.2); BASO % 1.6 % (0.0-2.0); EOS # 0.1 K/uL (0.0-0.7); EOS % 1.4 % (0.0-4.0); HEMOGLOBIN 9.4 g/dL (11.0-16.0); LYMPH # 2.6 K/uL (1.0-4.3); LYMPH % 39.9 % (20.0-40.0); MEAN CORPUSCULAR HEMOGLOBIN 22.9 pg (27.0-31.0); MEAN CORPUSCULAR HGB CONC 31.2 g/dL (33.0-37.0); MEAN PLATELET VOLUME 7.5 fL (7.2-11.7); MONO # 0.6 K/uL (0.0-0.8); NEUT # 3.1 K/uL (1.8-7.0); NEUT % 48.1 % (50.0-75.0); NRBC % 0.1 % (0.0-2.0); RBC 4.11 Mil/uL (3.80-5.20); RED CELL DISTRIBUTION WIDTH 18.4 % (11.5-14.5); WHITE BLOOD COUNT 6.5 K/uL (4.8-10.8)
[2017-09-29 14:25] LABS: MEAN CELL VOLUME 73.3 fL (81.0-99.0)
[2017-09-29 14:36] LABS: ALB/GLOB RATIO 1.2 (1.0-2.1); ALBUMIN 4.3 g/dL (3.5-5.0); ALT/SGPT 26 U/L (9-52); AST/SGOT 37 U/L (14-36); BLOOD UREA NITROGEN 15 mg/dL (7-17); CALCIUM 8.9 mg/dl (8.6-10.4); GFR AFRICAN-AMERICAN > 60; GFR NON-AFRICAN AMERICAN > 60
--- NOTE | 2017-09-29 15:40 | C.PDOC ---
History Of Present Illness 52 year old female presents to the ED with c/o sharp chest pain which began yesterday. She denies fever, chills, cough, and shortness of breath at this time. Chief Complaint (Nursing): Chest Pain History Per: Patient History/Exam Limitations: no limitations Onset/Duration Of Symptoms: Hrs Current Symptoms Are (Timing): Still Present Quality: Sharp, "Pain" Additional History Per: Patient Past Medical History Reviewed: Historical Data, Nursing Documentation, Vital Signs Vital Signs: Last Vital Signs Temp 98.0 F 09/29/17 15:42 Pulse 104 H 09/29/17 15:42 Resp 20 09/29/17 15:42 BP 175/91 H 09/29/17 15:42 Pulse Ox 100 09/29/17 18:28 - Medical History PMH: Anemia, Anxiety, Bipolar Disorder, CAD, Cardia Arrhythmia, COPD, Depression , Fractures (right wrist due to fall), HTN, Hypercholesterolemia, Migraine, Personality Disorder, Pneumonia, Seizures Denies: HIV, Chronic Kidney Disease, Sexually Transmitted Disease Surgical History: Cholecystectomy - [facility] Procedures DETOXIFICATION SERVICES FOR SUBSTANCE ABUSE TREATMENT (06/17/16) GROUP PRESCHOOL EDUCATION DIRECTOR FOR SUBSTANCE ABUSE TREATMENT, PSYCHOEDUCATION (04/22/16) GROUP PSYCHOTHERAPY (05/08/17) INDIV PSYCHOTHERAPY FOR SUBSTANCE ABUSE TREATMENT, SUPPORT (04/14/16) INDIV PSYCHOTHERAPY FOR SUBSTANCE ABUSE, PSYCHOEDUCATION (08/26/16) INDIVIDUAL PSYCHOTHERAPY, BEHAVIORAL (08/25/16) INDIVIDUAL PSYCHOTHERAPY, COGNITIVE-BEHAVIORAL (06/17/16) INDIVIDUAL PSYCHOTHERAPY, SUPPORTIVE (05/08/17) INTRODUCTION OF SERUM/TOX/VACCINE INTO MUSCLE, PERC APPROACH (08/19/16) MEDICATION MANAGEMENT (10/21/16) Family History: States: Unknown Family Hx - Social History Hx Tobacco Use: Yes Hx Alcohol Use: Yes Hx Substance Use: Yes - Immunization History Hx Tetanus Toxoid Vaccination: (unk) Hx Influenza Vaccination: No Hx Pneumococcal Vaccination: Yes Review Of Systems Constitutional: Negative for: Fever, Chills Cardiovascular: Positive for: Chest Pain Respiratory: Negative for: Cough, Shortness of Breath Physical Exam - Physical Exam Appears: Non-toxic, No Acute Distress Skin: Normal Color, Warm, Dry Head: Atraumatic, Normacephalic Eye(s): bilateral: Normal Inspection Oral Mucosa: Moist Neck: Supple Chest: Symmetrical, No Deformity, No Tenderness Cardiovascular: Rhythm Regular, No Murmur Respiratory: Normal Breath Sounds, No Rales, No Rhonchi, No Wheezing Gastrointestinal/Abdominal: Soft, No Tenderness, No Guarding, No Rebound Extremity: Normal ROM, Capillary Refill (less than 2 seconds ) Neurological/Psych: Oriented x3, Normal Speech, Normal Cognition Gait: Steady ED Course And Treatment - Laboratory Results Result Diagrams: 09/29/17 14:20 09/29/17 14:20 ECG: Interpreted By Me, Viewed By Me ECG Rhythm: Sinus Rhythm Rate From EC O2 Sat by Pulse Oximetry: 100 (on RA) Pulse Ox Interpretation: Normal - Other Rad CXR X-Ray: Interpreted by Me, Viewed By Me, Read By Radiologist Interpretation: PROCEDURE: CHEST RADIOGRAPH, 1 VIEW. HISTORY: Chest pain. COMPARISON: Comparison chest 05/17/2017. FINDINGS: LUNGS: Questionable tiny focus of pleural thickening right lung apex versus tiny nodular density. PLEURA : No pneumothorax or pleural fluid seen. CARDIOVASCULAR: Normal. OSSEOUS STRUCTURES: No significant abnormalities. VISUALIZED UPPER ABDOMEN: Normal. OTHER FINDINGS: None. IMPRESSION: No acute infiltrates. Questionable tiny nodule versus focus of pleural thickening right lung apex. Medical Decision Making Medical Decision Making: Progress: Bloodwork, EKG, CXR ordered and reviewed. Case discussed with patient's PMD, Dr. Hood. Advised to have patient f/u with him in office within 1-2 days for further evaluation. On reassessment, patient is resting comfortably, showing no signs of distress and is stable for discharge. Patient advised to f/u with Dr. Hood within 1-2 days for further evaluation and/or return to the ED if symptoms persist or worsen. Disposition - Disposition Referrals: Cristobal Hood MD [Staff Provider] - Disposition: HOME/ ROUTINE Disposition Time: 14:50 Condition: GOOD Additional Instructions: Thank you for letting us take care of you today. The emergency medical care you received today was directed at your acute symptoms. If you were prescribed any medication, please fill it and take as directed. It may take several days for your symptoms to resolve. Return to the Emergency Department if your symptoms worsen, do not improve, or if you have any other problems. Please contact your doctor or call one of the physicians/clinics you have been referred to that are listed on the Patient Visit Information form that is included in your discharge packet. Bring any paperwork you were given at discharge with you along with any medications you are taking to your follow up visit. Our treatment cannot replace ongoing medical care by a primary care provider (PCP) outside of the emergency department. Thank you for allowing the [facility] team to be part of your care today. Follow up with your primary doctor in 2 days for re-evaluation and further management. Instructions: Chest Pain That Is Not Caused by the Heart (DC) Forms: [employer] (Moldovan) - Clinical Impression Clinical Impression: Chest pain - Scribe Statement The provider has reviewed the documentation as recorded by the Scribe (Cortney Ranhdawa) Provider Attestation: All medical record entries made by the Scribe were at my direction and personally dictated by me. I have reviewed the chart and agree that the record accurately reflects my personal performance of the history, physical exam, medical decision making, and the department course for this patient. I have also personally directed, reviewed, and agree with the discharge instructions and disposition.
[2017-09-29 15:42] VITALS: BP 175/91; PULSE 104; TEMP 98
--- NOTE | 2017-09-29 17:33 | RAD ---
PROCEDURE: CHEST RADIOGRAPH, 1 VIEW HISTORY: Chest pain. COMPARISON: Comparison chest 05/17/2017 FINDINGS: LUNGS: Questionable tiny focus of pleural thickening right lung apex versus tiny nodular density. PLEURA: No pneumothorax or pleural fluid seen. CARDIOVASCULAR: Normal. OSSEOUS STRUCTURES: No significant abnormalities. VISUALIZED UPPER ABDOMEN: Normal. OTHER FINDINGS: None. IMPRESSION: No acute infiltrates. Questionable tiny nodule versus focus of pleural thickening right lung apex.
--- NOTE | 2017-10-02 22:09 | CARD ---
APPROVED REPORT EKG Measurement Heart [id number] <Conclusion> Normal sinus rhythm Normal ECG
== END 2017-09-29 15:52 | disposition home or self-care (01) ==
LOC: C.ER 13:08
DX: R07.9 Chest pain, unspecified (principal); E78.00 Pure hypercholesterolemia, unspecified; I10 Essential (primary) hypertension; I25.10 Atherosclerotic heart disease of native coronary artery without angina pectoris; Z72.0 Tobacco use

== ENCOUNTER 2017-11-08 10:53 | Inpatient (IN) | payer MEDICAID ==
[2017-11-08 10:58] VITALS: BMI 29.9
[2017-11-08 11:41] LABS: BASO # 0.1 K/uL (0.0-0.2); BASO % 1.1 % (0.0-2.0); EOS % 0.8 % (0.0-4.0); HEMOGLOBIN 10.1 g/dL (11.0-16.0); LYMPH # 1.9 K/uL (1.0-4.3); LYMPH % 32.6 % (20.0-40.0); MEAN CORPUSCULAR HEMOGLOBIN 23.3 pg (27.0-31.0); MEAN CORPUSCULAR HGB CONC 33.1 g/dL (33.0-37.0); MEAN PLATELET VOLUME 6.9 fL (7.2-11.7); MONO # 0.6 K/uL (0.0-0.8); MONO % 9.5 % (0.0-10.0); NEUT # 3.3 K/uL (1.8-7.0); NRBC % 0.1 % (0.0-2.0); RBC 4.36 Mil/uL (3.80-5.20); RED CELL DISTRIBUTION WIDTH 19.7 % (11.5-14.5); WHITE BLOOD COUNT 5.9 K/uL (4.8-10.8)
[2017-11-08 11:46] LABS: MEAN CELL VOLUME 70.3 fL (81.0-99.0)
[2017-11-08 11:57] LABS: ALB/GLOB RATIO 1.3 (1.0-2.1); ALBUMIN 4.5 g/dL (3.5-5.0); ALT/SGPT 29 U/L (9-52); AST/SGOT 71 U/L (14-36); BLOOD UREA NITROGEN 12 mg/dL (7-17); CALCIUM 8.5 mg/dl (8.6-10.4); GFR AFRICAN-AMERICAN > 60; GFR NON-AFRICAN AMERICAN > 60
[2017-11-08 13:30] LABS: URINE BILIRUBIN NEGATIVE (NEGATIVE); URINE BLOOD NEGATIVE (NEGATIVE); URINE CLARITY Clear (Clear); URINE COLOR Straw (YELLOW); URINE GLUCOSE (UA) NORMAL (Normal); URINE LEUKOCYTE ESTERASE TRACE Leu/uL (Negative); URINE PROTEIN NEGATIVE (NEGATIVE); URINE UROBILINOGEN NORMAL mg/dL (0.2-1.0)
[2017-11-08 13:45] LABS: BARBITURATES, UR NEGATIVE (NEGATIVE); BENZODIAZEPINES, UR NEGATIVE (NEGATIVE); OPIATES, UR NEGATIVE (NEGATIVE); PHENCYCLIDINE, UR NEGATIVE (NEGATIVE)
[2017-11-08] MEDS ORDERED: Sodium Chloride 0.9% 1,000 ML IV ONE (14:04)
[2017-11-08] MEDS ORDERED: Thiamine 100 mg/ml Inj IV ONE (14:04)
--- NOTE | 2017-11-08 14:16 | C.PDOC ---
History Of Present Illness Patient is a 52 y/o female who presents to the ED requesting alcohol detox. Patient initially stated complaints of suicide ideations, but now requests detox. Denies any suicidal ideations at this time. No physical complaints. Time Seen by Provider: 11/08/17 11:00 Chief Complaint (Nursing): Psychiatric Evaluation History Per: Patient History/Exam Limitations: no limitations Onset/Duration Of Symptoms: Hrs Current Symptoms Are (Timing): Still Present Suicide/Self Injury Attempted (Context): None Modifying Factor(s): Alcohol Associated Symptoms: denies: Suicidal Thoughts, Suicidal Plan Recent travel outside of the [place]: No Past Medical History Reviewed: Historical Data, Nursing Documentation, Vital Signs Vital Signs: Last Vital Signs Temp 97.7 F 11/08/17 14:31 Pulse 74 11/08/17 14:31 Resp 16 11/08/17 14:31 BP 158/90 H 11/08/17 14:31 Pulse Ox 98 11/08/17 14:31 - Medical History PMH: Anemia, Anxiety, Bipolar Disorder, CAD, Cardia Arrhythmia, COPD, Depression , Fractures (right wrist due to fall), HTN, Hypercholesterolemia, Migraine, Personality Disorder, Pneumonia, Seizures Denies: Diabetes, Hepatitis, HIV, Chronic Kidney Disease, Sexually Transmitted Disease Surgical History: Cholecystectomy - [facility] Procedures DETOXIFICATION SERVICES FOR SUBSTANCE ABUSE TREATMENT (06/17/16) GROUP HAT BLOCKING MACHINE OPERATOR FOR SUBSTANCE ABUSE TREATMENT, PSYCHOEDUCATION (04/22/16) GROUP PSYCHOTHERAPY (05/08/17) INDIV PSYCHOTHERAPY FOR SUBSTANCE ABUSE TREATMENT, SUPPORT (04/14/16) INDIV PSYCHOTHERAPY FOR SUBSTANCE ABUSE, PSYCHOEDUCATION (08/26/16) INDIVIDUAL PSYCHOTHERAPY, BEHAVIORAL (08/25/16) INDIVIDUAL PSYCHOTHERAPY, COGNITIVE-BEHAVIORAL (06/17/16) INDIVIDUAL PSYCHOTHERAPY, SUPPORTIVE (05/08/17) INTRODUCTION OF SERUM/TOX/VACCINE INTO MUSCLE, PERC APPROACH (08/19/16) MEDICATION MANAGEMENT (10/21/16) Family History: States: No Known Family Hx - Social History Hx Tobacco Use: Yes Hx Alcohol Use: Yes Hx Substance Use: Yes - Immunization History Hx Tetanus Toxoid Vaccination: (unk) Hx Influenza Vaccination: No Hx Pneumococcal Vaccination: Yes Review Of Systems Psych: Positive for: Other (requesting alcohol detox). Negative for: Suicidal ideation Physical Exam - Physical Exam Appears: Non-toxic, No Acute Distress, Other (alcohol on breath) Skin: Normal Color, Warm, Dry Head: Atraumatic, Normacephalic Oral Mucosa: Moist Chest: Symmetrical Cardiovascular: Rhythm Regular, No Murmur Respiratory: Normal Breath Sounds, No Rales, No Rhonchi, No Wheezing Gastrointestinal/Abdominal: Soft, No Tenderness Neurological/Psych: Oriented x3, Normal Speech, Normal Cognition ED Course And Treatment - Laboratory Results Result Diagrams: 11/08/17 11:37 11/08/17 11:37 ECG: Interpreted By Me, Viewed By Me ECG Rhythm: Sinus Rhythm Interpretation Of ECG: normal intervals and normal axis. T wave inversion at lead III. Rate From EC (bpm) O2 Sat by Pulse Oximetry: 100 (room air) Pulse Ox Interpretation: Normal Progress Note: 1 L IV fluids administered secondary to sodium of 126; medically cleared by Crisis. Patient to be admitted for deetox to Dr. Chiang. Disposition Discussed With : Lo Chiang Counseled Patient/Family Regarding: Studies Performed, Diagnosis - Disposition Disposition: HOSPITALIZED Disposition Time: 14:15 Condition: FAIR - Clinical Impression Clinical Impression: Alcohol abuse - Scribe Statement The provider has reviewed the documentation as recorded by the Scribe Allison Keen All medical record entries made by the Scribe were at my direction and personally dictated by me. I have reviewed the chart and agree that the record accurately reflects my personal performance of the history, physical exam, medical decision making, and the department course for this patient. I have also personally directed, reviewed, and agree with the discharge instructions and disposition.
--- NOTE | 2017-11-08 14:42 | PCM.BM ---
<Cindy Garay - Last Filed: 11/08/17 14:40> Treatment Plan Problems - Problems identified on initial assessmt potential for alcohol withdrawals Date Initiated: 11/08/17 Assessment reference: NA Status: Active Treatment assets and liabiliti Patient Assests: adapts well, cooperative, resourceful, self-reliant, ADL independent, negotiates basic needs, cognitively intact Patient Liabilities: live alone, substance abuse, medical problems - Milieu Protocol Maintain good personal hygiene: daily Encourage regular showers, daily Remind patient to perform daily oral care, daily Assist patient to perform ADL's Conduct patient checks and document Observation sheet: Q15 minutes Maintain personal safety: every shift Educate patient to report safety concerns to staff, every shift Monitor environment for contraband/sharps Medication safety: Monitor for expected outcome, potential side effects: every shift, Assess barriers to learning: every shift, Assess readiness for medication education: every shift <Lo Chiang - Last Filed: 11/09/17 12:29> - Diagnosis (1) Alcohol use disorder Status: Acute Interventions: 11/09/17 12:29 * Assess 7x/week regarding severity of withdrawal * Educate regarding risks, benefits, side effects and alternatives of medications * Use Motivational Interviewing for abstinence * Use CBT for relapse prevention * Medication management for withdrawal symptoms * Encourage medication assisted treatment *
[2017-11-08] MEDS: Multiple Vitamins Tab PO SCH (16:15)
--- NOTE | 2017-11-08 22:58 | CP.PCM.PCO ---
Physician Communication Note - Physician Communication Note Physician Communication Note: Welder Repair spoke to the nurses; pt is no longer suicidal calmed w meds, suppor
[2017-11-09] MEDS: Multiple Vitamins Tab PO SCH (09:19)
--- NOTE | 2017-11-09 12:18 | PCM.PSYCH ---
Initial Psychiatric Evaluation - Initial Psychiatric Evaluation Type of Admission: Voluntary Legal Status: Capacity Chief Complaint (in patient's own words): "I need help" History of Present Illness and Precipitating Events: The patient is seen, chart reviewed and case discussed. This is a 52-year-old female, with 4 children, lives alone in [place] in a section 8 housing and is on disability. The patient is well known to the software writer from many psych admissions for depression, borderline personality, bipolar disorder, intermixed with alcohol and other drug use. This time, however, she is in detox for alcohol withdrawal. She reports using more than sixpacks a day and describes withdrawal symptoms. No DTs or seizures. She denies drug use and her urine is clean. She has been going to [facility] 3 times a week as part of her deal to keep her housing, and is given low-dose Depakote, gabapentin and Seroquel, and trazodone. She denies manic symptoms and no psychosis elicited. However, she still depressed and sometimes even thought about suicide, and she attributes these to her adult son's suicide by drowning in a top about a year ago. She contracts for safety. Past psych history: As above. Many psych admissions. She was also in rehabilitation and detox before. Family psych history: Depression and anxiety Medical history: History of heart attack, chronic hyponatremia, hypercholesterolemia Current Medications: Active Medications Generic Name Dose Route Start Last Admin Trade Name Freq PRN Reason Stop Dose Admin Chlordiazepoxide 25 mg 11/08/17 18:00 11/09/17 11:10 Librium PO 11/12/17 17:59 25 mg Q6H CATHI Administration Taper Chlordiazepoxide 25 mg 11/08/17 15:53 11/08/17 21:09 Librium PO 25 mg Q4H PRN Administration Alcohol Withdrawal Clonidine HCl 0.1 mg 11/08/17 15:53 Catapres PO Q4H PRN Symptoms of alcohol withdrawl Clopidogrel Bisulfate 75 mg 11/09/17 12:15 Plavix PO DAILY CATHI Folic Acid 1 mg 11/08/17 16:00 11/09/17 09:19 Folic Acid PO 1 mg DAILY CATHI Administration Hydroxyzine HCl 50 mg 11/08/17 16:02 11/08/17 21:10 Atarax PO 50 mg Q6H PRN Administration Anxiety Ibuprofen 600 mg 11/08/17 15:55 Motrin Tab PO Q6H PRN Pain, moderate (4-7) Mirtazapine 15 mg 11/08/17 22:00 11/08/17 21:10 Remeron PO 15 mg HS CATHI Administration Multivitamins 1 tab 11/08/17 16:00 11/09/17 09:19 Hexavitamin PO 1 tab DAILY CATHI Administration Oxybutynin Chloride 5 mg 11/09/17 14:00 Ditropan Tab PO TID CATHI Quetiapine Fumarate 200 mg 11/09/17 22:00 Seroquel PO HS CATHI Rosuvastatin Calcium 10 mg 11/09/17 22:00 Crestor PO HS CATHI Thiamine HCl 100 mg 11/08/17 16:15 11/09/17 09:19 Vitamin B1 Tab PO 100 mg DAILY CATHI Administration Trazodone HCl 100 mg 11/09/17 12:12 Desyrel PO HS PRN Insomnia Past Psychiatric History - Past Psychiatric History Previous Treatment History: Inpatient Pertinent Medical Hx (Current Medical&Sleep Prob, Allergies): Allergies Allergy/AdvReac Type Severity Reaction Status Date / Time FISH Allergy ITCHING Verified 11/08/17 10:57 Penicillins AdvReac URTICARIA Verified 11/08/17 10:57 Atorvastatin [Lipitor] 10 mg PO DIN #30 tab 04/09/17 Clopidogrel [Plavix] 75 mg PO DAILY #30 tab 04/09/17 traZODone [Desyrel] 150 mg PO HS 30 Days #90 tab 04/09/17 Gabapentin [Neurontin] 800 mg PO Q12H 06/28/17 Multivitamin [Multi-Vitamin Daily] 1 tab PO DAILY 06/28/17 Oxybutynin [Ditropan Tab] 5 mg PO DAILY 06/28/17 Venlafaxine [Effexor XR] 37.5 mg PO DAILY 06/28/17 busPIRone [Buspar] 5 mg PO DAILY 06/28/17 Aspirin [Ecotrin] 81 mg PO DAILY tabec 06/30/17 Clindamycin [Cleocin] 150 mg PO TID #15 cap 07/10/17 Divalproex [Depakote ER] 1,000 mg PO DAILY 07/12/17 Lisinopril [Zestril] 40 mg PO DAILY #30 tab 07/17/17 amLODIPine [Norvasc] 10 mg PO DAILY #30 tab 07/17/17 Review of Systems - Psychiatric Psychiatric: Abnormal Sleep Pattern, Anhedonia, Anxiety, Change in Appetite, Depression, Difficulty Concentrating. absent: Hallucinations, Homicidal Ideation, Hopelessness, Paranoia, Suicidal Ideation Mental Status Examination - Personal Presentation Personal Presentation: Looks older than stated age - Affect Affect: Broad - Motor Activity Motor Activity: Calm - Reliability in Providing Information Reliability in Providing Information: Good - Speech Speech: Organized - Mood Mood: Depressed, Anxious - Formal Thought Process Formal Thought Process: No Impairment - Cognitive Functions Orientation: Person, Place, Situation, Time Sensorium: Alert Estimate of Intelligence: Average Judgement: Intact, as evidence by: Insight regarding need for hospitalization Memory: Recent intact, as evidence by: Ability to recall events of the day, Remote intact, as evidenced by: Abilit to recall sig. life events - Risk Risk: Withdrawal, Diminished functioning - Strength & Assets Inventory Strength & Assets Inventory: Cooperative - Limitations Limitations: Living alone DSM 5 DX - DSM 5 DSM 5 Diagnosis: Alcohol withdrawal, uncomplicated Alcohol use disorder, severe Bipolar disorder, depressed Borderline personality - Recommended/Plan of Treatment Treatment Recommendations and Plan of Treatment: Taper with librium Gabapentin for augmentation if needed - she already takes but 800 qd DC depakote - low dose anyway Continue seroquel for depression and bipolarity Limit setting, structure and indiv. psychotherapy As needed medications All risks, benefits and alternatives of the meds discussed, and the pt agreed and understood. Attend groups and activities Supportive therapy and psychoeducation AL for abstinence CBT for relapse prevention Encourage MAT Refer to rehab or IOP, and self-help groups Smoking cessation with AL Nicotine patch if needed 34 min Projected ELOS: 5-6 days Prognosis: good w treatment - Smoking Cessation Smoking Cessation Initiated: Yes
--- NOTE | 2017-11-10 02:21 | CARD ---
APPROVED REPORT EKG Measurement Heart [id number] <Conclusion> Normal sinus rhythm Prolonged QT Abnormal ECG
[2017-11-10] MEDS: Multiple Vitamins Tab PO SCH (09:30)
--- NOTE | 2017-11-10 10:13 | PCM.PYCHPN ---
Psychiatric Progress Note - Psychiatric Progress Note Patient seen today, length of contact: 15 min Patient Chief Complaint: I' m feeling little better Problems Identified/Issues Discussed: Patient seen and evaluated, chart reviewed and discussed with the nurse. Patient reports improvement in the withdrawal symptoms. She reports improvement in anxiety and irritability. She still reports poor sleep and asking to to get higher dose of trazodone instead of Seroquel. She is tolerating the withdrawal medications and denies any side effects. ymptoms are improving but she needs more time for stabilization Supportive therapy and psychoeducation were given. Medication Change: Yes Medical Record Reviewed: Yes Mental Status Examination - Cognitive Function Orientation: Person, Place, Situation, Time Memory: Intact Attention: WNL Concentration: Poor Association: WNL Fund of Knowledge: Poor - Mood Mood: Depressed, Anxious - Affect Affect: Broad - Speech Speech: Soft - Formal Thought Process Formal Thought Process: No Impairment - Suicidal Ideation Suicidal Ideation: No - Homicidal Ideation Homicidal Ideation: No Goal/Treatment Plan - Goal/Treatment Plan Need for Continued Stay: Severe depression anxiety, Severe functional impairment Progress Toward Problem(s) and Goals/Treatment Plan: Alcohol withdrawal, uncomplicated Alcohol use disorder, severe Bipolar disorder, depressed Borderline personality Taper with librium Gabapentin for augmentation if needed - she already takes but 800 qd DC depakote - low dose anyway DC seroquel for depression and bipolarity Increase trazodone Limit setting, structure and indiv. psychotherapy As needed medications All risks, benefits and alternatives of the meds discussed, and the pt agreed and understood. Attend groups and activities Supportive therapy and psychoeducation [place] for abstinence CBT for relapse prevention Encourage MAT Refer to rehab or IOP, and self-help groups Smoking cessation with IN Nicotine patch if needed
[2017-11-11] MEDS: Multiple Vitamins Tab PO SCH (09:09)
--- NOTE | 2017-11-11 12:27 | PCM.PYCHPN ---
Psychiatric Progress Note - Psychiatric Progress Note Patient seen today, length of contact: 15 min Patient Chief Complaint: I' m feeling little better Problems Identified/Issues Discussed: Patient seen and evaluated, chart reviewed and discussed with the nurse. Patient reports improvement in the anxiety and irritability and withdrawal symptoms. she denies any suicidal ideation or any homicidal ideation. She is tolerating the withdrawal medications and denies any side effects. Symptoms are improving but she needs more time for stabilization Supportive therapy and psychoeducation were given. Medication Change: Yes Medical Record Reviewed: Yes Mental Status Examination - Cognitive Function Orientation: Person, Place, Situation, Time Memory: Intact Attention: WNL Concentration: Poor Association: WNL Fund of Knowledge: Poor - Mood Mood: Depressed, Anxious - Affect Affect: Broad - Speech Speech: Soft - Formal Thought Process Formal Thought Process: No Impairment - Suicidal Ideation Suicidal Ideation: No - Homicidal Ideation Homicidal Ideation: No Goal/Treatment Plan - Goal/Treatment Plan Need for Continued Stay: Severe depression anxiety, Severe functional impairment Progress Toward Problem(s) and Goals/Treatment Plan: Alcohol withdrawal, uncomplicated Alcohol use disorder, severe Bipolar disorder, depressed Borderline personality Taper with librium Gabapentin for augmentation if needed - she already takes but 800 qd DC depakote - low dose anyway DC seroquel for depression and bipolarity Increase trazodone Limit setting, structure and indiv. psychotherapy As needed medications All risks, benefits and alternatives of the meds discussed, and the pt agreed and understood. Attend groups and activities Supportive therapy and psychoeducation [place] for abstinence CBT for relapse prevention Encourage MAT Refer to rehab or IOP, and self-help groups Smoking cessation with [place] Nicotine patch if needed
[2017-11-11 17:44] VITALS: RESP 18
[2017-11-11] MEDS ORDERED: Vitamins A & D Oint UD Foilpak TOP PRN (21:30)
--- NOTE | 2017-11-12 08:50 | PCM.PYCHDC ---
Mental Status Examination - Mental Status Examination Orientation: Person, Place, Situation, Time Memory: Intact Mood: Anxious Affect: Constricted Speech: Appropriate Attention: WNL Concentration: WNL Association: WNL Fund of Knowledge: WNL Formal Thought Process: No Impairment Suicidal Ideation: No Current Homicidal Ideation?: No Discharge Summary - Discharge Note Reason for Hospitalization: Alcohol detox Psychiatric History (includes Medical, Family, Personal Hx): Multiple admissions Laboratory Data: Chronic hyponatremia Consultations:: List each consultation separately and include: 1. Reason for request. 2. Findings. 3. Follow-up Summary of Hospital Course include:: 1. Description of specific treatment plan utilized for patients during their course of treatmen. 2. Summarize the time- course for resolution of acute symptoms and/or regressed behaviors. 3. Describe issues identified and worked on during hospitalization. 4. Describe medication utilized. 5. Describe medical problems identified and treated. 6. Reassessment of suicide risk Summary of Hospital Course: The patient is seen, chart reviewed and case discussed. On admission: This is a 52-year-old female, with 4 children, lives alone in [place] in a section 8 housing and is on disability. The patient is well known to the brief writer from many psych admissions for depression, borderline personality, bipolar disorder, intermixed with alcohol and other drug use. This time, however, she is in detox for alcohol withdrawal. She reports using more than sixpacks a day and describes withdrawal symptoms. No DTs or seizures. She denies drug use and her urine is clean. She has been going to [facility] 3 times a week as part of her deal to keep her housing, and is given low-dose Depakote, gabapentin and Seroquel, and trazodone. She denies manic symptoms and no psychosis elicited. However, she still depressed and sometimes even thought about suicide, and she attributes these to her adult son's suicide by drowning in a top about a year ago. She contracts for safety. Past psych history: As above. Many psych admissions. She was also in rehabilitation and detox before. Family psych history: Depression and anxiety Medical history: History of heart attack, chronic hyponatremia, hypercholesterolemia Hospital course: The pt was admitted and started on treatment with psychotherapy, support, psychoeducation and medications. MT and CBT used. The pt attended groups and activities, as well as milieu therapy. All the risks and benefits of medications, incl. naltrexone which is started today, are discussed and the patient understood and agreed. The pt improved with the treatments provided. After care discussed with the patient. She will return to [facility] IOP - Final Diagnosis (DSM 5) Condition upon Discharge: IMPROVED DSM 5: Alcohol withdrawal, uncomplicated Alcohol use disorder, severe Bipolar disorder, depressed Borderline personality Disposition: HOME/ ROUTINE Follow-up Treatment Plan: Continue below medications after discharge. Follow after care plan as discussed. Use relapse prevention skills Return to ER or call 911 if suicidal, homicidal or symptoms relapse. Stay away from stress, alcohol and drugs. See primary doctor regularly and get labs. Prescriptions/Medication Reconciliation: Clopidogrel [Plavix] 75 mg PO DAILY #30 tab Gabapentin [Neurontin] 400 mg PO TID #90 cap hydrOXYzine HCl [Atarax] 50 mg PO BID PRN #30 tab PRN Reason: Anxiety Mirtazapine [Remeron] 15 mg PO HS #30 tab Naltrexone [Revia] 50 mg PO DAILY #30 tab Oxybutynin [Ditropan Tab] 5 mg PO TID #90 tab QUEtiapine [SEROquel] 200 mg PO HS #30 tab traZODone [Desyrel] 100 mg PO HS PRN #30 tab PRN Reason: Insomnia
[2017-11-12 09:05] VITALS: BP 123/78; PULSE 68; TEMP 97.9; O2SAT 100
[2017-11-12] MEDS: Multiple Vitamins Tab PO SCH (09:26)
== END 2017-11-12 10:15 | disposition home or self-care (01) | DRG 750 ==
LOC: C.ER 10:53 → C.7D 14:14
PROVIDERS: ADMIT Psychiatry & Neurology Psychiatry; ATTEND Psychiatry & Neurology Psychiatry
PROC: HZ2ZZZZ Detoxification Services for Substance Abuse Treatment (ICD-10-PCS; principal; 2017-11-08)
PROC: HZ52ZZZ Individual Psychotherapy for Substance Abuse Treatment, Cognitive-Behavioral (ICD-10-PCS; 2017-11-08)
PROC: HZ59ZZZ Individual Psychotherapy for Substance Abuse Treatment, Supportive (ICD-10-PCS; 2017-11-08)
PROC: HZ56ZZZ Individual Psychotherapy for Substance Abuse Treatment, Psychoeducation (ICD-10-PCS; 2017-11-08)
DX: F10.230 Alcohol dependence with withdrawal, uncomplicated (principal); J44.9 Chronic obstructive pulmonary disease, unspecified; F31.9 Bipolar disorder, unspecified; F41.9 Anxiety disorder, unspecified; F60.3 Borderline personality disorder; I10 Essential (primary) hypertension; I25.10 Atherosclerotic heart disease of native coronary artery without angina pectoris; D64.9 Anemia, unspecified; E78.00 Pure hypercholesterolemia, unspecified; I25.2 Old myocardial infarction; R45.851 Suicidal ideations; Z87.891 Personal history of nicotine dependence

== ENCOUNTER 2017-11-13 12:44 | Emergency (ER) | payer MEDICAID ==
[2017-11-13 12:44] VITALS: BMI 29.9
[2017-11-13 12:55] VITALS: TEMP 98.4
--- NOTE | 2017-11-13 14:12 | C.PDOC ---
History Of Present Illness <ManuelGema raymundo Shad - Last Filed: 11/13/17 18:42> <Omar Garcia - Last Filed: 11/15/17 15:07> 52 y/o female presents to ED requesting ETOH detox. Patient was discharged from detox yesterday and contrary to triage reports suicidal ideation. Patient denies HI, Withdrawal signs or any other physical complaints at this time. ( Gema Manuel) History Per: Patient History/Exam Limitations: no limitations Onset/Duration Of Symptoms: Days Current Symptoms Are (Timing): Still Present Suicide/Self Injury Attempted (Context): None Modifying Factor(s): Alcohol Associated Symptoms: Suicidal Thoughts <ManuelGema Shad - Last Filed: 11/13/17 18:42> <Omar Garcia - Last Filed: 11/15/17 15:07> Time Seen by Provider: 11/13/17 13:20 Chief Complaint (Nursing): Substance Abuse Past Medical History Reviewed: Historical Data, Nursing Documentation, Vital Signs - Medical History PMH: Anemia, Anxiety, Bipolar Disorder, CAD, Cardia Arrhythmia, COPD, Depression , Fractures (right wrist due to fall), HTN, Hypercholesterolemia, Migraine, Personality Disorder, Pneumonia, Seizures Surgical History: Cholecystectomy Family History: States: No Known Family Hx - Social History Hx Tobacco Use: Yes Hx Alcohol Use: Yes Hx Substance Use: No - Immunization History Hx Tetanus Toxoid Vaccination: (unk) Hx Influenza Vaccination: No Hx Pneumococcal Vaccination: Yes <Gema Manuel - Last Filed: 11/13/17 18:42> Vital Signs: Last Vital Signs Temp 98.4 F 11/13/17 15:28 Pulse 83 11/13/17 15:28 Resp 18 11/13/17 15:28 BP 151/88 H 11/13/17 15:28 Pulse Ox 98 11/13/17 18:48 - [facility] Procedures DETOXIFICATION SERVICES FOR SUBSTANCE ABUSE TREATMENT (11/08/17) GROUP WATER POLLUTION CONTROL INSPECTOR FOR SUBSTANCE ABUSE TREATMENT, PSYCHOEDUCATION (04/22/16) GROUP PSYCHOTHERAPY (05/08/17) INDIV PSYCHOTHERAPY FOR SUBSTANCE ABUSE TREATMENT, SUPPORT (11/08/17) INDIV PSYCHOTHERAPY FOR SUBSTANCE ABUSE, COGNITIV BEHAVIORAL (11/08/17) INDIV PSYCHOTHERAPY FOR SUBSTANCE ABUSE, PSYCHOEDUCATION (11/08/17) INDIVIDUAL PSYCHOTHERAPY, BEHAVIORAL (08/25/16) INDIVIDUAL PSYCHOTHERAPY, COGNITIVE-BEHAVIORAL (06/17/16) INDIVIDUAL PSYCHOTHERAPY, SUPPORTIVE (05/08/17) INTRODUCTION OF SERUM/TOX/VACCINE INTO MUSCLE, PERC APPROACH (08/19/16) MEDICATION MANAGEMENT (10/21/16) Review Of Systems Constitutional: Negative for: Fever, Chills Cardiovascular: Negative for: Chest Pain Gastrointestinal: Negative for: Nausea, Vomiting, Abdominal Pain Skin: Negative for: Rash <Gema Manuel - Last Filed: 11/13/17 18:42> Physical Exam - Physical Exam Appears: Non-toxic, Agitated, Other (intoxicated, alcohol on breath) Skin: Warm, Dry, No Rash Head: Atraumatic, Normacephalic Eye(s): bilateral: Normal Inspection Oral Mucosa: Moist Neck: Normal ROM, Supple Cardiovascular: Rhythm Regular Respiratory: Normal Breath Sounds, No Rales, No Rhonchi, No Wheezing Gastrointestinal/Abdominal: Soft, No Tenderness, No Guarding, No Rebound Extremity: Bilateral: Atraumatic, Normal ROM Neurological/Psych: Oriented x3, Normal Speech Gait: Steady <Gema Manuel Rosa Last Filed: 11/13/17 18:42> ED Course And Treatment - Laboratory Results Result Diagrams: 11/13/17 14:14 11/13/17 14:14 O2 Sat by Pulse Oximetry: 98 (RA) Pulse Ox Interpretation: Normal <Gema Manuel Rosa Last Filed: 11/13/17 18:42> - Laboratory Results Result Diagrams: 11/13/17 14:14 11/13/17 14:14 <Omar Garcia - Last Filed: 11/15/17 15:07> Medical Decision Making <Gema Manuel - Last Filed: 11/13/17 18:42> <Omar Garcia - Last Filed: 11/15/17 15:07> Medical Decision Making: Impression: alcohol abuse Plan: * Blood work * Drug screen * UA * Crisis eval Progress: Patient requesting detox from alcohol was just discharged. No beds available. Patient now states she is suicidal. Placed on 1:1 observation. Labs ordered for medical clearance Labs reviewed with no acute findings. In my clinical judgment patient is medically cleared and stable for admission. PES contacted for evaluation. PES at bedside and full eval completed. Case discussed with DR Dunne who cleared the patient for discharge Patient observed in ED for sobriety. Patient ambulatory with steady gait and clinically sober for discharge (Gema Manuel) Disposition Counseled Patient/Family Regarding: Diagnosis, Need For Followup - Disposition Disposition Time: 15:49 - POA Present On Arrival: None <Gema Manuel - Last Filed: 11/13/17 18:42> <Omar Garcia - Last Filed: 11/15/17 15:07> - Disposition Disposition: HOME/ ROUTINE Condition: STABLE Instructions: Drug Abuse and Drug Addiction (DC) Forms: [employer] (Turkmen) - Clinical Impression Clinical Impression: Alcohol intoxication, Drug abuse - PA / STUDENT COUNSELOR / Resident Statement MD/DO has reviewed & agrees with the documentation as recorded. - Scribe Statement The provider has reviewed the documentation as recorded by the Scribe <Gema Manuel - Last Filed: 11/13/17 18:42> <Omar Garcia - Last Filed: 11/15/17 15:07> - Scribe Statement Cindy Peralta All medical record entries made by the Scribe were at my direction and personally dictated by me. I have reviewed the chart and agree that the record accurately reflects my personal performance of the history, physical exam, medical decision making, and the department course for this patient. I have also personally directed, reviewed, and agree with the discharge instructions and disposition. (Gema Manuel)
[2017-11-13 14:17] LABS: BASO # 0.1 K/uL (0.0-0.2); BASO % 1.1 % (0.0-2.0); EOS # 0.1 K/uL (0.0-0.7); EOS % 0.9 % (0.0-4.0); HEMOGLOBIN 9.4 g/dL (11.0-16.0); LYMPH # 2.4 K/uL (1.0-4.3); LYMPH % 26.5 % (20.0-40.0); MEAN CELL VOLUME 73.3 fL (81.0-99.0); MEAN CORPUSCULAR HEMOGLOBIN 23.7 pg (27.0-31.0); MEAN CORPUSCULAR HGB CONC 32.3 g/dL (33.0-37.0); MEAN PLATELET VOLUME 7.7 fL (7.2-11.7); MONO # 0.7 K/uL (0.0-0.8); MONO % 7.8 % (0.0-10.0); NEUT # 5.7 K/uL (1.8-7.0); NEUT % 63.7 % (50.0-75.0); RBC 3.97 Mil/uL (3.80-5.20); RED CELL DISTRIBUTION WIDTH 20.4 % (11.5-14.5); WHITE BLOOD COUNT 8.9 K/uL (4.8-10.8)
[2017-11-13 14:36] LABS: ALB/GLOB RATIO 1.2 (1.0-2.1); ALBUMIN 4.3 g/dL (3.5-5.0); ALT/SGPT 23 U/L (9-52); AST/SGOT 55 U/L (14-36); BLOOD UREA NITROGEN 16 mg/dL (7-17); GFR AFRICAN-AMERICAN > 60; GFR NON-AFRICAN AMERICAN > 60
[2017-11-13 14:41] LABS: SQUAMOUS EPITHIAL 2 /hpf (0-5); URINE BACTERIA RARE (<OCC); URINE BILIRUBIN NEGATIVE (NEGATIVE); URINE BLOOD NEGATIVE (NEGATIVE); URINE CLARITY Clear (Clear); URINE COLOR Straw (YELLOW); URINE GLUCOSE (UA) NORMAL (Normal); URINE LEUKOCYTE ESTERASE 2+ Leu/uL (Negative); URINE PROTEIN NEGATIVE (NEGATIVE); URINE UROBILINOGEN NORMAL mg/dL (0.2-1.0)
[2017-11-13 14:56] LABS: BARBITURATES, UR NEGATIVE (NEGATIVE); OPIATES, UR NEGATIVE (NEGATIVE); PHENCYCLIDINE, UR NEGATIVE (NEGATIVE)
[2017-11-13 15:37] LABS: BENZODIAZEPINES, UR POSITIVE (NEGATIVE)
[2017-11-13 15:48] VITALS: BP 151/88; PULSE 83; RESP 18
[2017-11-13 15:50] VITALS: O2SAT 98
== END 2017-11-13 15:57 | disposition home or self-care (01) ==
LOC: C.ER 12:44
DX: F10.129 Alcohol abuse with intoxication, unspecified (principal); F19.10 Other psychoactive substance abuse, uncomplicated; E78.00 Pure hypercholesterolemia, unspecified; I10 Essential (primary) hypertension; I25.10 Atherosclerotic heart disease of native coronary artery without angina pectoris; J44.9 Chronic obstructive pulmonary disease, unspecified; Z72.0 Tobacco use

== ENCOUNTER 2017-11-23 14:12 | Emergency (ER) | payer MEDICAID ==
[2017-11-23 14:18] VITALS: BMI 20.7
[2017-11-23 14:22] VITALS: RESP 18
--- NOTE | 2017-11-23 16:13 | C.PDOC ---
History Of Present Illness 52 year old female is brought to the ED via ambulance from her snf for evaluation of alcohol intoxication. Patient has history of multiple detox and psych-related admissions. She denies suicidal/homicidal ideation at this time. Time Seen by Provider: 11/23/17 14:23 Chief Complaint (Nursing): Substance Abuse History Per: Patient, EMS History/Exam Limitations: intoxication Onset/Duration Of Symptoms: Hrs Current Symptoms Are (Timing): Still Present Suicide/Self Injury Attempted (Context): None Modifying Factor(s): Alcohol Associated Symptoms: denies: Suicidal Thoughts, Suicidal Plan Involuntary Hold By: None Recent travel outside of the [place]: No Additional History Per: Patient, EMS Past Medical History Reviewed: Historical Data, Nursing Documentation, Vital Signs Vital Signs: Last Vital Signs Temp 98.8 F 11/23/17 16:14 Pulse 96 H 11/23/17 16:14 Resp 18 11/23/17 16:14 BP 126/67 11/23/17 16:14 Pulse Ox 96 11/23/17 17:46 - Medical History PMH: Anemia, Anxiety, Bipolar Disorder, CAD, Cardia Arrhythmia, COPD, Depression , Fractures (right wrist due to fall), HTN, Hypercholesterolemia, Migraine, Personality Disorder, Pneumonia, Seizures Denies: Diabetes, Hepatitis, HIV, Chronic Kidney Disease, Sexually Transmitted Disease Surgical History: Cholecystectomy - [facility] DETOXIFICATION SERVICES FOR SUBSTANCE ABUSE TREATMENT (11/08/17) 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 FOR SUBSTANCE ABUSE TREATMENT, PSYCHOEDUCATION (04/22/16) GROUP PSYCHOTHERAPY (05/08/17) INDIV PSYCHOTHERAPY FOR SUBSTANCE ABUSE TREATMENT, SUPPORT (11/08/17) INDIV PSYCHOTHERAPY FOR SUBSTANCE ABUSE, COGNITIV BEHAVIORAL (11/08/17) INDIV PSYCHOTHERAPY FOR SUBSTANCE ABUSE, PSYCHOEDUCATION (11/08/17) INDIVIDUAL PSYCHOTHERAPY, BEHAVIORAL (08/25/16) INDIVIDUAL PSYCHOTHERAPY, COGNITIVE-BEHAVIORAL (06/17/16) INDIVIDUAL PSYCHOTHERAPY, SUPPORTIVE (05/08/17) INTRODUCTION OF SERUM/TOX/VACCINE INTO MUSCLE, PERC APPROACH (08/19/16) MEDICATION MANAGEMENT (10/21/16) Family History: States: Unknown Family Hx - Social History Hx Tobacco Use: Yes Hx Alcohol Use: Yes Hx Substance Use: No - Immunization History Hx Tetanus Toxoid Vaccination: (unk) Hx Influenza Vaccination: No Hx Pneumococcal Vaccination: Yes Review Of Systems Psych: Positive for: Other (EtOH intoxication ). Negative for: Suicidal ideation Physical Exam - Physical Exam Appears: Non-toxic, No Acute Distress, Other (visibly intoxicated, appears to have gained around 10-15 pounds since prior evaluation ) Skin: Normal Color, Warm, Dry Head: Atraumatic, Normacephalic Eye(s): bilateral: Normal Inspection Oral Mucosa: Moist, Other (alcohol on breath ) Neck: Supple Chest: Symmetrical, No Deformity, No Tenderness Cardiovascular: Rhythm Regular, No Murmur Respiratory: Normal Breath Sounds, No Rales, No Rhonchi, No Wheezing Extremity: Normal ROM, Capillary Refill (less than 2 seconds ) Neurological/Psych: Other (arousable to touch and verbal stimuli ) Gait: Steady ED Course And Treatment O2 Sat by Pulse Oximetry: 96 (on RA) Pulse Ox Interpretation: Normal Reevaluation Time: 16:12 Reassessment Condition: Improved (stable gait in hallway- appropriate for safe d /c) Medical Decision Making Medical Decision Making: alcohol abuse no SI/HI ? malingering- many recent psych and detox adm Disposition Doctor Will See Patient In The: Office Counseled Patient/Family Regarding: Studies Performed, Diagnosis - Disposition Referrals: Cristobal Hood MD [Staff Provider] - Disposition: HOME/ ROUTINE Disposition Time: 16:12 Condition: GOOD Additional Instructions: continue outpatient help for your psych and alcohol issues. Instructions: Alcohol Abuse and Alcoholism (DC) Forms: [facility] (Tr[place]) - Clinical Impression Clinical Impression: Alcohol abuse - Scribe Statement The provider has reviewed the documentation as recorded by the Scribe (Cortney Randhawa) Provider Attestation: All medical record entries made by the Scribe were at my direction and personally dictated by me. I have reviewed the chart and agree that the record accurately reflects my personal performance of the history, physical exam, medical decision making, and the department course for this patient. I have also personally directed, reviewed, and agree with the discharge instructions and disposition.
[2017-11-23 16:14] VITALS: BP 126/67; PULSE 96; TEMP 98.8; O2SAT 96
== END 2017-11-23 16:16 | disposition home or self-care (01) ==
LOC: C.ER 14:12
DX: F10.129 Alcohol abuse with intoxication, unspecified (principal); E78.00 Pure hypercholesterolemia, unspecified; I10 Essential (primary) hypertension; I25.10 Atherosclerotic heart disease of native coronary artery without angina pectoris; Z72.0 Tobacco use

== ENCOUNTER 2017-12-10 12:52 | Inpatient (IN) | payer MEDICAID ==
[2017-12-10 12:52] VITALS: BMI 20.7
[2017-12-10 14:20] LABS: HCG,QUALITATIVE URINE NEGATIVE (NEGATIVE)
[2017-12-10 14:22] LABS: BASO # 0.1 K/uL (0.0-0.2); BASO % 1.8 % (0.0-2.0); EOS # 0.1 K/uL (0.0-0.7); EOS % 1.5 % (0.0-4.0); HEMOGLOBIN 9.9 g/dL (11.0-16.0); LYMPH # 1.7 K/uL (1.0-4.3); MEAN CELL VOLUME 74.3 fL (81.0-99.0); MEAN CORPUSCULAR HEMOGLOBIN 24.1 pg (27.0-31.0); MEAN CORPUSCULAR HGB CONC 32.4 g/dL (33.0-37.0); MEAN PLATELET VOLUME 7.3 fL (7.2-11.7); MONO # 0.3 K/uL (0.0-0.8); MONO % 8.6 % (0.0-10.0); NEUT # 1.4 K/uL (1.8-7.0); NEUT % 40.1 % (50.0-75.0); NRBC % 0.1 % (0.0-2.0); RBC 4.12 Mil/uL (3.80-5.20); RED CELL DISTRIBUTION WIDTH 21.7 % (11.5-14.5); WHITE BLOOD COUNT 3.5 K/uL (4.8-10.8)
[2017-12-10 14:27] LABS: SQUAMOUS EPITHIAL 1 /hpf (0-5); URINE BILIRUBIN NEGATIVE (NEGATIVE); URINE BLOOD NEGATIVE (NEGATIVE); URINE CLARITY Clear (Clear); URINE COLOR Colorless (YELLOW); URINE GLUCOSE (UA) NORMAL (Normal); URINE LEUKOCYTE ESTERASE TRACE Leu/uL (Negative); URINE PROTEIN NEGATIVE (NEGATIVE); URINE UROBILINOGEN NORMAL mg/dL (0.2-1.0)
[2017-12-10 14:39] LABS: ALB/GLOB RATIO 1.4 (1.0-2.1); ALBUMIN 4.5 g/dL (3.5-5.0); ALT/SGPT 54 U/L (9-52); AST/SGOT 71 U/L (14-36); BLOOD UREA NITROGEN 12 mg/dL (7-17); CALCIUM 8.6 mg/dl (8.6-10.4); GFR AFRICAN-AMERICAN > 60; GFR NON-AFRICAN AMERICAN > 60
[2017-12-10 14:48] LABS: BARBITURATES, UR NEGATIVE (NEGATIVE); OPIATES, UR NEGATIVE (NEGATIVE); PHENCYCLIDINE, UR NEGATIVE (NEGATIVE)
[2017-12-10 14:49] LABS: BENZODIAZEPINES, UR POSITIVE (NEGATIVE)
--- NOTE | 2017-12-10 14:58 | C.PDOC ---
History Of Present Illness 52 y/o female, w/PMhx of chronic alcoholism and benzodiazepine abuse, presents to the ER requesting detox from alcohol. Patient states that she has lost control of her alcoholism and she last consumed alcohol earlier in the morning today. Denies having CP, SOB, abdominal pain, and vomiting. Time Seen by Provider: 12/10/17 13:22 Chief Complaint (Nursing): Medical Clearance History Per: Patient History/Exam Limitations: no limitations Onset/Duration Of Symptoms: Days Current Symptoms Are (Timing): Still Present Severity: Moderate Past Medical History Reviewed: Historical Data, Nursing Documentation, Vital Signs Vital Signs: Last Vital Signs Temp 98.4 F 12/10/17 16:59 Pulse 78 12/10/17 16:59 Resp 18 12/10/17 17:50 BP 146/81 12/10/17 16:59 Pulse Ox 99 12/10/17 16:59 - Medical History PMH: Anemia, Anxiety, Bipolar Disorder, CAD, Cardia Arrhythmia, COPD, Depression , Fractures (right wrist due to fall), HTN, Hypercholesterolemia, Migraine, Personality Disorder, Pneumonia, Seizures Denies: Diabetes, Hepatitis, HIV, Chronic Kidney Disease, Sexually Transmitted Disease Surgical History: Cholecystectomy - [facility] Procedures DETOXIFICATION SERVICES FOR SUBSTANCE ABUSE TREATMENT (11/08/17) 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 FOR SUBSTANCE ABUSE TREATMENT, PSYCHOEDUCATION (04/22/16) GROUP PSYCHOTHERAPY (05/08/17) INDIV PSYCHOTHERAPY FOR SUBSTANCE ABUSE TREATMENT, SUPPORT (11/08/17) INDIV PSYCHOTHERAPY FOR SUBSTANCE ABUSE, COGNITIV BEHAVIORAL (11/08/17) INDIV PSYCHOTHERAPY FOR SUBSTANCE ABUSE, PSYCHOEDUCATION (11/08/17) INDIVIDUAL PSYCHOTHERAPY, BEHAVIORAL (08/25/16) INDIVIDUAL PSYCHOTHERAPY, COGNITIVE-BEHAVIORAL (06/17/16) INDIVIDUAL PSYCHOTHERAPY, SUPPORTIVE (05/08/17) INTRODUCTION OF SERUM/TOX/VACCINE INTO MUSCLE, PERC APPROACH (08/19/16) MEDICATION MANAGEMENT (10/21/16) Family History: States: No Known Family Hx - Social History Hx Tobacco Use: Yes Hx Alcohol Use: Yes Hx Substance Use: No - Immunization History Hx Tetanus Toxoid Vaccination: (unk) Hx Influenza Vaccination: No Hx Pneumococcal Vaccination: Yes Review Of Systems Except As Marked, All Systems Reviewed And Found Negative. Constitutional: Negative for: Fever, Chills Physical Exam - Physical Exam Appears: Other (actively tearful, anxious- appearing) Skin: Normal Color, Warm, Dry Head: Atraumatic, Normacephalic Eye(s): bilateral: Normal Inspection Nose: Normal Oral Mucosa: Moist Neck: Supple Chest: Symmetrical Cardiovascular: Rhythm Regular Respiratory: Normal Breath Sounds, No Rales, No Rhonchi, No Wheezing Gastrointestinal/Abdominal: Normal Exam, Soft, No Tenderness, No Guarding, No Rebound Neurological/Psych: Oriented x3, Normal Speech ED Course And Treatment - Laboratory Results Result Diagrams: 12/10/17 14:14 12/10/17 14:14 O2 Sat by Pulse Oximetry: 96 (RA) Pulse Ox Interpretation: Normal Medical Decision Making Medical Decision Making: Plan: --Labs --UA The patient is medically cleared for psych/detox eval/admission. Disposition - Disposition Disposition: HOSPITALIZED Disposition Time: 15:00 Condition: STABLE - POA Present On Arrival: None - Clinical Impression Clinical Impression: Polysubstance abuse, Alcohol dependence - PA / PIN MACHINE OPERATOR / Resident Statement MD/DO has reviewed & agrees with the documentation as recorded. - Scribe Statement The provider has reviewed the documentation as recorded by the Davion Groves Provider Attestation All medical record entries made by the Davion were at my direction and personally dictated by me. I have reviewed the chart and agree that the record accurately reflects my personal performance of the history, physical exam, medical decision making, and the department course for this patient. I have also personally directed, reviewed, and agree with the discharge instructions and disposition.
--- NOTE | 2017-12-10 17:49 | PCM.BM ---
Treatment Plan Problems - Problems identified on initial assessmt potiential for opiate withdrawal Date Initiated: 12/10/17 Time Initiated: 17:48 Assessment reference: NA Status: Active Treatment assets and liabiliti Patient Assests: adapts well, cooperative, resourceful, self-reliant, ADL independent, negotiates basic needs, cognitively intact Patient Liabilities: substance abuse, medical problems - Milieu Protocol Maintain good personal hygiene: daily Encourage regular showers, daily Remind patient to perform daily oral care, daily Assist patient to perform ADL's Maintain personal safety: every shift Educate patient to report safety concerns to staff, every shift Monitor environment for contraband/sharps Medication safety: Monitor for expected outcome, potential side effects: every shift, Assess barriers to learning: every shift, Assess readiness for medication education: every shift
--- NOTE | 2017-12-10 17:52 | PCM.BM ---
<Ashley Moser - Last Filed: 12/10/17 17:50> Treatment Plan Problems - Problems identified on initial assessmt potiential for autonomic instability related to alcohol withdrawal Date Initiated: 12/10/17 Time Initiated: 17:51 Assessment reference: NA Status: Active Treatment assets and liabiliti Patient Assests: adapts well, cooperative, resourceful, self-reliant, ADL independent, negotiates basic needs, cognitively intact Patient Liabilities: substance abuse, medical problems - Milieu Protocol Maintain good personal hygiene: daily Encourage regular showers, daily Remind patient to perform daily oral care, daily Assist patient to perform ADL's Maintain personal safety: every shift Educate patient to report safety concerns to staff, every shift Monitor environment for contraband/sharps Medication safety: Monitor for expected outcome, potential side effects: every shift, Assess barriers to learning: every shift, Assess readiness for medication education: every shift <Dg Pepe - Last Filed: 12/11/17 19:31> Treatment Plan Problems - Problems identified on initial assessmt potiential for autonomic instability related to alcohol withdrawal Date Initiated: 12/10/17 Time Initiated: 17:51 Assessment reference: NA Status: Active - Diagnosis (1) Alcohol use disorder, severe, dependence Status: Acute Interventions: 12/11/17 19:29 * Assess 7x/week regarding severity of withdrawal * Educate regarding risks, benefits, side effects and alternatives of medications * Use Motivational Interviewing for abstinence * Use CBT for relapse prevention * Medication management for withdrawal symptoms * Encourage medication assisted treatment (2) Sedative, hypnotic or anxiolytic use disorder, severe, dependence Status: Acute Interventions: 12/11/17 19:30 * Assess 7x/week regarding severity of withdrawal * Educate regarding risks, benefits, side effects and alternatives of medications * Use Motivational Interviewing for abstinence * Use CBT for relapse prevention * Medication management for withdrawal symptoms * Encourage medication assisted treatment (3) Bipolar 1 disorder, depressed Status: Acute Interventions: 12/11/17 19:31 * Assess/adjust medications daily and /or as needed * See patient on an individual basis 7x/week to assess level of manic behaviors and stability * Discuss risks, benefits, side effects and alternatives of medications
[2017-12-11] MEDS: Multiple Vitamins Tab PO SCH (09:51)
--- NOTE | 2017-12-11 17:59 | PCM.PSYCH ---
Initial Psychiatric Evaluation - Initial Psychiatric Evaluation Type of Admission: Voluntary Legal Status: Capacity Chief Complaint (in patient's own words): I need help for my alcohol use. History of Present Illness and Precipitating Events: Patient is a 51 years old, , unemployed, on disability, female with history of bipolar disorder currently on treatment from [facility] outpatient, reported compliant with treatment was admitted due to withdrawing from alcohol and anxiolytics. Alcohol: Started drinking at the age of 13 years, was drinking 6, 24 ounce cans of beer daily, last drink reported yesterday. Longest period of abstinence was about 2 years from 2013 2 2015. History of 6 detox at [facility] and one rehabilitation at [facility]. Xanax: Started using Xanax daily for last 3 months. Was taking daily, one bar each of 2 mg. Also history of cocaine use in the past, last use reported 5 years ago. History of heroin and cannabis use during her school years. She quit smoking cigarettes 4 months ago. She is , had 3 grownup children. Her son committed suicide, and is in good relation with her daughters. Lives alone. Reported she was in long-term many times for fighting with the . Current Medications: Active Medications Generic Name Dose Route Start Last Admin Trade Name Freq PRN Reason Stop Dose Admin Amlodipine Besylate 10 mg 12/11/17 10:00 12/11/17 09:51 Norvasc PO 10 mg DAILY CATHI Administration Chlordiazepoxide 25 mg 12/10/17 20:00 12/11/17 13:24 Librium PO 12/14/17 19:59 25 mg Q6H CATHI Administration Taper Chlordiazepoxide 25 mg 12/10/17 21:00 12/11/17 16:22 Librium PO 25 mg Q4H PRN Administration Alcohol Withdrawal Clonidine HCl 0.1 mg 12/10/17 20:00 12/11/17 08:29 Catapres PO 0.1 mg Q6 PRN Administration hypertension Clopidogrel Bisulfate 75 mg 12/11/17 10:00 12/11/17 09:51 Plavix PO 75 mg DAILY CATHI Administration Folic Acid 1 mg 12/11/17 10:00 12/11/17 09:51 Folic Acid PO 1 mg DAILY CATHI Administration Gabapentin 800 mg 12/10/17 22:00 12/11/17 17:25 Neurontin PO 800 mg BID CATHI Administration Lisinopril 40 mg 12/11/17 10:00 12/11/17 09:51 Zestril PO 40 mg DAILY CATHI Administration Mirtazapine 15 mg 12/10/17 22:00 12/10/17 21:26 Remeron PO 15 mg HS CATHI Administration Multivitamins 1 tab 12/11/17 10:00 12/11/17 09:51 Hexavitamin PO 1 tab DAILY CATHI Administration Naltrexone HCl 50 mg 12/11/17 10:00 12/11/17 09:51 Revia PO 50 mg DAILY CATHI Administration Thiamine HCl 100 mg 12/11/17 10:00 12/11/17 09:51 Vitamin B1 Tab PO 100 mg DAILY CATHI Administration Trazodone HCl 150 mg 12/11/17 22:00 Desyrel PO HS CATHI Past Psychiatric History - Past Psychiatric History Previous Treatment History: [facility]patient [facility]: [facility] History of Abuse: None reported History of ETOH/Drug Use: See HPI History of Family Illness: Her son committed suicide Pertinent Medical Hx (Current Medical&Sleep Prob, Allergies): Allergies Allergy/AdvReac Type Severity Reaction Status Date / Time FISH Allergy ITCHING Verified 12/10/17 13:19 Penicillins AdvReac URTICARIA Verified 12/10/17 13:19 Atorvastatin [Lipitor] 10 mg PO DIN #30 tab 04/09/17 Gabapentin [Neurontin] 800 mg PO Q12H 06/28/17 Multivitamin [Multi-Vitamin Daily] 1 tab PO DAILY 06/28/17 Venlafaxine [Effexor XR] 37.5 mg PO DAILY 06/28/17 Aspirin [Ecotrin] 81 mg PO DAILY tabec 06/30/17 Lisinopril [Zestril] 40 mg PO DAILY #30 tab 07/17/17 amLODIPine [Norvasc] 10 mg PO DAILY #30 tab 07/17/17 Clopidogrel [Plavix] 75 mg PO DAILY #30 tab 11/12/17 Mirtazapine [Remeron] 15 mg PO HS #30 tab 11/12/17 Naltrexone [Revia] 50 mg PO DAILY #30 tab 11/12/17 Oxybutynin [Ditropan Tab] 5 mg PO TID #90 tab 11/12/17 QUEtiapine [SEROquel] 200 mg PO HS #30 tab 11/12/17 hydrOXYzine HCl [Atarax] 50 mg PO BID PRN #30 tab 11/12/17 traZODone [Desyrel] 100 mg PO HS PRN #30 tab 11/12/17 Hypertension Kayla artery disease Review of Systems - Psychiatric Psychiatric: As Per HPI, Depression, Mood Swings Mental Status Examination - Personal Presentation Personal Presentation: Looks stated age - Affect Affect: Depressed - Motor Activity Motor Activity: Calm - Reliability in Providing Information Reliability in Providing Information: Fair - Speech Speech: Organized - Mood Mood: Depressed - Formal Thought Process Formal Thought Process: No Impairment - Hallucinations/Delusions Hallucinations: Other (None reported) Delusions: Other - Obsessions/Compulsions Obsessions: None Compulsions: None - Cognitive Functions Orientation: Person, Place, Situation, Time Sensorium: Alert Attention/Concentration: Attentive Abstract Thinking: [place] Estimate of Intelligence: Average Judgement: Intact, as evidence by: Insight regarding need for hospitalization Memory: Recent intact, as evidence by: Ability to recall events of the day, Remote intact, as evidenced by: Ability to recall historical events - Risk Risk: Withdrawal, Diminished functioning - Strength & Assets Inventory Strength & Assets Inventory: Cooperative - Limitations Limitations: Living alone DSM 5 DX - DSM 5 DSM 5 Diagnosis: Alcohol use disorder severe Anxiolytics use disorder severe Bipolar 1 disorder depressed - Recommended/Plan of Treatment Treatment Recommendations and Plan of Treatment: Patient education. Supportive therapy. CBT for relapse prevention. [place] for abstinence. We will start Librium taper for alcohol and Xanax withdrawal symptoms. Other when necessary medications. Patient wants to [facility] care after discharge from the hospital. Projected ELOS: 4-5 days - Smoking Cessation Smoking Cessation Initiated: No Reason for not providing: Patient doesn't smoke cigarettes.
[2017-12-11] MEDS ORDERED: Vitamins A & D Oint UD Foilpak TOP ONE (21:11)
[2017-12-12] MEDS: Multiple Vitamins Tab PO SCH (09:38)
--- NOTE | 2017-12-12 10:20 | PCM.PYCHPN ---
Psychiatric Progress Note - Psychiatric Progress Note Patient seen today, length of contact: 15 minutes Patient Chief Complaint: "I feel blessed" Problems Identified/Issues Discussed: Pt was seen and evaluated. Chart reviewed and nurse inpt received. Pt reported he has some shakes and she is feeling nervous. He had no new complaints. She needs more time to stabilize. She is eating sleeping fine. Pt is compliant with medication and denied s/e DSM 5 Symptoms Update: Alcohol dependence, severe Alcohol withdrawal Medication Change: Yes (librium detox) Medical Record Reviewed: Yes Mental Status Examination - Cognitive Function Orientation: Person, Place, Situation, Time Memory: Intact Attention: WNL Concentration: Poor Association: Loose Fund of Knowledge: WNL Decription of patient's judgement and insights: limited/limited - Mood Mood: Depressed - Affect Affect: Depressed - Formal Thought Process Formal Thought Process: No Impairment - Suicidal Ideation Suicidal Ideation: No Plan: denied - Homicidal Ideation Homicidal Ideation: No Plan: denied Goal/Treatment Plan - Goal/Treatment Plan Need for Continued Stay: Severe depression anxiety, Discharge may exacerbated symptoms - Smoking Cessation Smoking Cessation Initiated: Yes
[2017-12-12] MEDS ORDERED: Vitamins A & D Oint UD Foilpak TOP ONE (22:00)
[2017-12-13] MEDS: Multiple Vitamins Tab PO SCH (09:12)
[2017-12-13 13:24] VITALS: RESP 18
--- NOTE | 2017-12-13 14:32 | PCM.PYCHPN ---
Psychiatric Progress Note - Psychiatric Progress Note Patient seen today, length of contact: 15 minutes Patient Chief Complaint: I'm feeling much better. Problems Identified/Issues Discussed: Patient seen, chart reviewed, case discussed with the staff. Issues related to illness and treatment were discussed with the patient and staff. Reported compliant with treatment with no adverse affects. Tolerating treatment very well. Risk and benefits of medications were discussed with the patient patient understood and agreed. Reported feeling much better. Calm and cooperative, speech soft with good eye contact. Awake alert oriented 3, denied any delusions, any auditory of visual hallucinations, no suicidal ideations or homicidal ideations at the time of evaluation. Aftercare discussed with the patient. Patient wants to go to [facility] for follow-up care after discharge from the hospital. Medical Problems: Hypertension Kayla artery disease Diagnostic Results: Reviewed DSM 5 Symptoms Update: Improvement with treatment Medication Change: No Medical Record Reviewed: Yes Mental Status Examination - Cognitive Function Orientation: Person, Place, Situation, Time Memory: Intact Attention: WNL Concentration: WNL Association: WNL Fund of Knowledge: [facility] Decription of patient's judgement and insights: Fair - Mood Mood: Depressed (Much less than before) - Affect Affect: Other (Appropriate) - Speech Speech: Appropriate - Formal Thought Process Formal Thought Process: No Impairment Psychotic Thoughts and Behaviors: None - Suicidal Ideation Suicidal Ideation: No - Homicidal Ideation Homicidal Ideation: No Goal/Treatment Plan - Goal/Treatment Plan Need for Continued Stay: Remain at risks for inpatient hospitalization, Discharge may exacerbated symptoms, Severe functional impairment Progress Toward Problem(s) and Goals/Treatment Plan: Patient education. Supportive therapy. CBT for relapse prevention. [place] for abstinence. Continue treatment as before. Patient wants to go to [facility] for follow-up care after discharge from the hospital. Estimated Date of D/C: 12/14/17 - Smoking Cessation Smoking Cessation Initiated: No
[2017-12-14 08:11] VITALS: BP 131/76; PULSE 67; TEMP 97.7; O2SAT 99
[2017-12-14] MEDS: Multiple Vitamins Tab PO SCH (09:19)
--- NOTE | 2017-12-14 19:35 | PCM.PYCHDC ---
Mental Status Examination - Mental Status Examination Orientation: Person, Place, Situation, Time Memory: Intact Mood: Neutral Affect: Other (Appropriate) Speech: Appropriate Attention: WNL Concentration: WNL Association: WNL Fund of Knowledge: WNL Formal Thought Process: No Impairment Description of patient's judgement and insight: Fair Psychotic Thoughts and Behaviors: None Suicidal Ideation: No Current Homicidal Ideation?: No Discharge Summary - Discharge Note Reason for Hospitalization: Alcohol use disorder severe Anxiolytics use disorder severe Bipolar 1 disorder depressed Laboratory Data: Reviewed Consultations:: List each consultation separately and include: 1. Reason for request. 2. Findings. 3. Follow-up Summary of Hospital Course include:: 1. Description of specific treatment plan utilized for patients during their course of treatmen. 2. Summarize the time- course for resolution of acute symptoms and/or regressed behaviors. 3. Describe issues identified and worked on during hospitalization. 4. Describe medication utilized. 5. Describe medical problems identified and treated. 6. Reassessment of suicide risk Summary of Hospital Course: Patient is a 51 years old, , unemployed, on disability, female with history of bipolar disorder currently on treatment from [facility] outpatient, reported compliant with treatment was admitted due to withdrawing from alcohol and anxiolytics. Alcohol: Started drinking at the age of 13 years, was drinking 6, 24 ounce cans of beer daily, last drink reported yesterday. Longest period of abstinence was about 2 years from 2013 2 2016. History of 6 detox at [facility] and one rehabilitation at [facility]. Xanax: Started using Xanax daily for last 3 months. Was taking daily, one bar each of 2 mg. Also history of cocaine use in the past, last use reported 5 years ago. History of heroin and cannabis use during her school years. She quit smoking cigarettes 4 months ago. She is , had 3 grownup children. Her son committed suicide, and is in good relation with her daughters. Lives alone. Reported she was in [facility] many times for fighting with the . During her stay in the hospital patient was treated with Librium taper for alcohol and anxiolytics withdrawal symptoms. Patient was also getting mirtazapine and other medications for her medical issues. She was also getting when necessary medications. Patient was attending groups. With the above treatment patient started feeling better with no withdrawal symptoms. Today patient was stable and ready for discharge from the hospital. At the time of evaluation and discharge, patient was awake alert oriented 3, had no delusions, no auditory or visual hallucinations, no suicidal ideations or homicidal ideations. Patient was discharged in a stable condition. Patient will go to [facility] for her rehabilitation. - Diagnosis (1) Alcohol use disorder, severe, dependence Status: Acute (2) Sedative, hypnotic or anxiolytic use disorder, severe, dependence Status: Acute (3) Bipolar 1 disorder, depressed Status: Acute - Final Diagnosis (DSM 5) Condition upon Discharge: STABLE Disposition: HOME/ ROUTINE Follow-up Treatment Plan: Patient wants to go to [facility] for follow-up care after discharge from the hospital. Prescriptions/Medication Reconciliation: amLODIPine [Norvasc] 10 mg PO DAILY #30 tab Gabapentin [Neurontin] 800 mg PO BID #60 cap - Smoking Cessation Smoking Cessation Medication prescribed: No - Antipsychotic Medications Pt discharged on 2 or more routine antipsychotic medications: No
== END 2017-12-14 12:45 | disposition home or self-care (01) | DRG 750 ==
LOC: C.ER 12:52 → C.7D 17:02
PROVIDERS: ADMIT Psychiatry & Neurology Psychiatry; ATTEND Psychiatry & Neurology Psychiatry
DX: F10.230 Alcohol dependence with withdrawal, uncomplicated (principal); J44.9 Chronic obstructive pulmonary disease, unspecified; F10.220 Alcohol dependence with intoxication, uncomplicated; Y90.8 Blood alcohol level of 240 mg/100 ml or more; E78.00 Pure hypercholesterolemia, unspecified; F13.20 Sedative, hypnotic or anxiolytic dependence, uncomplicated; F60.9 Personality disorder, unspecified; I10 Essential (primary) hypertension; I25.10 Atherosclerotic heart disease of native coronary artery without angina pectoris; Z87.891 Personal history of nicotine dependence; F31.30 Bipolar disorder, current episode depressed, mild or moderate severity, unspecified